=== PATIENT | male | born 1985 | race Caucasian/White ===

== ENCOUNTER → 2017-09-12 | Outpatient (CLI) | payer OTHER ==
--- NOTE | 2017-09-12 15:20 | CT ---
EXAMINATION TYPE: CT angio chest DATE OF EXAM: 09/12/2017 COMPARISON: NONE HISTORY: Chest pain on breathing CT DLP: 260.00 mGycm Automated exposure control for dose reduction was used. CONTRAST: CTA scan of the thorax is performed with IV Contrast, patient injected with 100 ml mL of Omnipaque 35 0, pulmonary embolism protocol. MIP images are created and reviewed. 3D reconstructed images are cr eated on an independent workstation and reviewed. FINDINGS: LUNGS: The lungs are grossly clear, there is no concerning parenchymal mass or nodule identified. T here is no pleural effusion or pneumothorax seen. The tracheobronchial tree is patent. AORTA: No additional significant abnormality is seen. MEDIASTINUM: There is satisfactory enhancement of the pulmonary artery and its branches, there is no CT evidence for pulmonary embolism. There are no greater than 1 cm hilar or mediastinal lymph nodes. No pericardial effusion is seen. OTHER: No additional significant abnormality is seen. IMPRESSION: NO EVIDENT PULMONARY EMBOLISM.
== END | disposition home or self-care (01) ==
LOC: RADCTMAIN 14:03
PROVIDERS: ATTEND Nurse Practitioner Family
DX: R07.1 Chest pain on breathing (principal)
CPT/HCPCS: 71275; Q9967

== ENCOUNTER 2018-09-16 08:09 | Inpatient (IN) | payer OTHER ==
[2018-09-16] MEDS ORDERED: KETOROLAC 30 MG/ML 1 ML VIAL IVP STA (08:46)
--- NOTE | 2018-09-16 08:47 | ED ---
Abdominal Pain HPI - General Chief Complaint: Abdominal Pain Stated Complaint: Possible Hernia Source: patient, RN notes reviewed, old records reviewed Mode of arrival: ambulatory Limitations: no limitations - History of Present Illness Initial Comments: This Patient is a 33-year-old male presents emergency room today with 2 days of left groin pain. Patient reports that hernia repair [address] Aquino. Patient reports that he works as a manager strategic at [employer] He's been doing a lot of heavy lifting. Patient states that he has been having a hard time standing coughing or doing any activity without severe pain in the left groin. He denies any changes in stools. She reports he has been urinating more frequently. When trying to go to work today and going over bumps in the car paper Patient was having severe pain, so they decided to come here for evaluation. Patient reports he has been having some diarrhea lately. - Related Data Home Medications Medication Instructions Recorded Confirmed Lisinopril [Zestril] 5 mg PO DAILY 01/22/16 09/16/18 Albuterol Inhaler [Ventolin Hfa 2 puff INHALATION RT-Q8H 09/16/18 09/16/18 Inhaler] Cyanocobalamin [Vitamin B-12] 500 mcg PO DAILY 09/16/18 09/16/18 Dextroamphetamine/Amphetamine 20 mg PO QAM 09/16/18 09/16/18 [Adderall Xr] Previous Rx's Medication Instructions Recorded lamoTRIgine [LaMICtal] 200 mg PO DAILY #30 tablet 05/13/16 Allergies Allergy/AdvReac Type Severity Reaction Status Date / Time No Known Allergies Allergy Verified 09/16/18 09:30 Review of Systems ROS Statement: Those systems with pertinent positive or pertinent negative responses have been documented in the HPI. ROS Other: All systems not noted in ROS Statement are negative. Past Medical History Past Medical History: Hypertension Additional Past Medical History / Comment(s): celiac disease History of Any Multi-Drug Resistant Organisms: None Reported Past Surgical History: Hernia Repair Past Psychological History: Anxiety, Depression Smoking Status: Current every day smoker Past Alcohol Use History: None Reported, Occasional Past Drug Use History: None Reported General Exam - General Exam Comments Initial Comments: 33-year-old male. Alert and oriented. No significant distress at this time. Limitations: no limitations General appearance: alert, in no apparent distress Head exam: Present: atraumatic, normocephalic, normal inspection Eye exam: Present: normal appearance, PERRL, EOMI. Absent: scleral icterus, conjunctival injection, periorbital swelling ENT exam: Present: normal exam, mucous membranes moist Neck exam: Present: normal inspection. Absent: tenderness, meningismus, lymphadenopathy Respiratory exam: Present: normal lung sounds bilaterally. Absent: respiratory distress, wheezes, rales, rhonchi, stridor Cardiovascular Exam: Present: regular rate, normal rhythm, normal heart sounds. Absent: systolic murmur, diastolic murmur, rubs, gallop, clicks GI/Abdominal exam: Present: tenderness (tender over L groin, bulging into scrotum. ), normal bowel sounds. Absent: soft, distended, guarding, rebound, rigid Extremities exam: Present: normal inspection, full ROM, normal capillary refill. Absent: tenderness, pedal edema, joint swelling, calf tenderness Back exam: Present: normal inspection Neurological exam: Present: alert, oriented X3, CN II-XII intact Psychiatric exam: Present: normal affect, normal mood Skin exam: Present: warm, dry, intact, normal color. Absent: rash Course Vital Signs 09/16/18 09/16/18 08:10 09:38 Temperature 98.2 F Pulse Rate 75 66 Respiratory 18 18 Rate Blood Pressure 129/72 112/66 O2 Sat by Pulse 97 99 Oximetry Medical Decision Making - Medical Decision Making 33-year-old male presents emergency murmurs today with concern for left groin hernia pain. Patient has had hernia repair by about 3 years ago. Patient states his Heavy lifting. He is quite tender over the left groin. No focal skin changes noted. Tenderness in the left side of the abdomen as well. Patient was given IV fluids labwork obtained. Lab work shows no significant changes at this time. We did send the Patient to CT. There is evidence of enlarged lymph nodes throughout the entire abdomen. Also evidence of intussusception with likely transient due to lymph node adhesion. Patient informed of these results. He is quite anxious as his father recently from cancer. I discussed that the Patient for surgical consult dictation. Nothing by mouth. Started on IV maintenance fluids and pain medication. - Lab Data Result diagrams: 09/16/18 08:44 09/16/18 08:44 Lab Results 09/16/18 09/16/18 09/16/18 Range/Units 08:44 08:44 08:44 WBC 4.9 (3.8-10.6) k/uL RBC 4.79 (4.30-5.90) m/uL Hgb 15.0 (13.0-17.5) gm/dL Hct 46.1 (39.0-53.0) % MCV 96.3 (80.0-100.0) fL MCH 31.4 (25.0-35.0) pg MCHC 32.6 (31.0-37.0) g/dL RDW 13.5 (11.5-15.5) % Plt Count 188 (150-450) k/uL Neutrophils % 52 % Lymphocytes % 35 % Monocytes % 6 % Eosinophils % 4 % Basophils % 1 % Neutrophils # 2.6 (1.3-7.7) k/uL Lymphocytes # 1.7 (1.0-4.8) k/uL Monocytes # 0.3 (0-1.0) k/uL Eosinophils # 0.2 (0-0.7) k/uL Basophils # 0.0 (0-0.2) k/uL PT 9.8 (9.0-12.0) sec INR 1.0 (<1.2) APTT 24.6 (22.0-30.0) sec Sodium 141 (137-145) mmol/L Potassium 4.3 (3.5-5.1) mmol/L Chloride 106 (98-107) mmol/L Carbon Dioxide 24 (22-30) mmol/L Anion Gap 11 mmol/L BUN 10 (9-20) mg/dL Creatinine 0.88 (0.66-1.25) mg/dL Est GFR (CKD-EPI)AfAm >90 (>60 ml/min/1.73 sqM) Est GFR (CKD-EPI)NonAf >90 (>60 ml/min/1.73 sqM) Glucose 100 H (74-99) mg/dL Plasma Lactic Acid Jalen (0.7-2.0) mmol/L Calcium 9.4 (8.4-10.2) mg/dL Total Bilirubin 0.5 (0.2-1.3) mg/dL AST 26 (17-59) U/L ALT 33 (21-72) U/L Alkaline Phosphatase 63 (38-126) U/L Total Protein 7.0 (6.3-8.2) g/dL Albumin 4.4 (3.5-5.0) g/dL Amylase 43 (30-110) U/L Lipase 21 L (23-300) U/L Urine Color Urine Appearance (Clear) Urine pH (5.0-8.0) Ur Specific [place] (1.001-1.035) Urine Protein (Negative) Urine Glucose (UA) (Negative) Urine Ketones (Negative) Urine Blood (Negative) Urine Nitrite (Negative) Urine Bilirubin (Negative) Urine Urobilinogen (<2.0) mg/dL Ur Leukocyte Esterase (Negative) 09/16/18 09/16/18 Range/Units 08:44 09:29 WBC (3.8-10.6) k/uL RBC (4.30-5.90) m/uL Hgb (13.0-17.5) gm/dL Hct (39.0-53.0) % MCV (80.0-100.0) fL MCH (25.0-35.0) pg MCHC (31.0-37.0) g/dL RDW (11.5-15.5) % Plt Count (150-450) k/uL Neutrophils % % Lymphocytes % % Monocytes % % Eosinophils % % Basophils % % Neutrophils # (1.3-7.7) k/uL Lymphocytes # (1.0-4.8) k/uL Monocytes # (0-1.0) k/uL Eosinophils # (0-0.7) k/uL Basophils # (0-0.2) k/uL PT (9.0-12.0) sec INR (<1.2) APTT (22.0-30.0) sec Sodium (137-145) mmol/L Potassium (3.5-5.1) mmol/L Chloride (98-107) mmol/L Carbon Dioxide (22-30) mmol/L Anion Gap mmol/L BUN (9-20) mg/dL Creatinine (0.66-1.25) mg/dL Est GFR (CKD-EPI)AfAm (>60 ml/min/1.73 sqM) Est GFR (CKD-EPI)NonAf (>60 ml/min/1.73 sqM) Glucose (74-99) mg/dL Plasma Lactic Acid Jalen 1.3 (0.7-2.0) mmol/L Calcium (8.4-10.2) mg/dL Total Bilirubin (0.2-1.3) mg/dL AST (17-59) U/L ALT (21-72) U/L Alkaline Phosphatase (38-126) U/L Total Protein (6.3-8.2) g/dL Albumin (3.5-5.0) g/dL Amylase (30-110) U/L Lipase (23-300) U/L Urine Color Colorless Urine Appearance Clear (Clear) Urine pH 6.5 (5.0-8.0) Ur Specific [place] 1.011 (1.001-1.035) Urine Protein Negative (Negative) Urine Glucose (UA) Negative (Negative) Urine Ketones Negative (Negative) Urine Blood Negative (Negative) Urine Nitrite Negative (Negative) Urine Bilirubin Negative (Negative) Urine Urobilinogen <2.0 (<2.0) mg/dL Ur Leukocyte Esterase Negative (Negative) - Radiology Data Radiology results: report reviewed Numerous borderline left abdominal mesenteric lymph nodes measuring up to 8 mm along with prominent fluid-filled small bowel loops throughout the colon correlate for possible Elissa's enteric adenitis enteritis. Short segment of bowel intussusception in the left mid abdomen may be secondary to lymphoid hyperplasia in route with transient. Dilation of adjacent small bowel loops up to 4 cm may be secondary to the enteritis and ileus. There is no improvement after conservative management follow-up with both oral and IV contrast can be considered. Segmental areas of mild wall thickening of this hepatic flexure could represent concurrent colitis. Disposition Clinical Impression: Intussusception, Left groin pain, Lymphadenopathy, abdominal Disposition: ADMITTED IP TO THIS HOSP Condition: Stable Is patient prescribed a controlled substance at d/c from ED?: No Referrals: Denise Craft MD [Primary Care Provider] - 1-2 days
[2018-09-16 09:21] LABS: Basophils % (A) 1 %; Eosinophils # (A) 0.2 k/uL (0-0.7); Eosinophils % (A) 4 %; HCT 46.1 % (39.0-53.0); Lymphocytes # (A) 1.7 k/uL (1.0-4.8); Lymphocytes % (A) 35 %; MCH 31.4 pg (25.0-35.0); MCHC 32.6 g/dL (31.0-37.0); MCV 96.3 fL (80.0-100.0); Monocytes # (A) 0.3 k/uL (0-1.0); Monocytes % (A) 6 %; Neutrophils # (A) 2.6 k/uL (1.3-7.7); Neutrophils % (A) 52 %; Platelet Count 188 k/uL (150-450); RBC 4.79 m/uL (4.30-5.90); RDW 13.5 % (11.5-15.5); WBC 4.9 k/uL (3.8-10.6)
[2018-09-16 09:26] LABS: ALT 33 U/L (21-72); AST 26 U/L (17-59); Albumin 4.4 g/dL (3.5-5.0); Alkaline Phosphatase 63 U/L (38-126); Amylase 43 U/L (30-110); Anion Gap 11 mmol/L; Blood Urea Nitrogen 10 mg/dL (9-20); Calcium 9.4 mg/dL (8.4-10.2); Carbon Dioxide 24 mmol/L (22-30); Chloride 106 mmol/L (98-107); Glucose 100 mg/dL (74-99); Lipase 21 U/L (23-300); Potassium 4.3 mmol/L (3.5-5.1); Sodium 141 mmol/L (137-145); Total Bilirubin 0.5 mg/dL (0.2-1.3)
[2018-09-16 09:27] LABS: Partial Thromboplastin Time 24.6 sec (22.0-30.0); Prothrombin Time 9.8 sec (9.0-12.0)
[2018-09-16 09:53] LABS: Appearance,Urine Clear (Clear); Bilirubin,Urine Negative (Negative); Blood,Urine Negative (Negative); Color,Urine Colorless; Glucose,Urine (UA) Negative (Negative); Ketones,Urine Negative (Negative); Leukocyte Esterase,Urine Negative (Negative); Nitrite,Urine Negative (Negative); PH, Urine 6.5 (5.0-8.0); Protein,Urine Negative (Negative); Specific Gravity,Urine 1.011 (1.001-1.035); Urobilinogen,Urine <2.0 mg/dL (<2.0)
--- NOTE | 2018-09-16 09:59 | CT ---
EXAMINATION TYPE: CT abdomen pelvis w con DATE OF EXAM: 09/16/2018 COMPARISON: NONE HISTORY: 33 year-old male abdominal pain, possible hernia TECHNIQUE: Contiguous axial scanning of the abdomen and pelvis following administration of 100 ml Iso charu 300 IV contrast. Delayed images through the kidneys and coronal/sagittal reconstructions perform ed. CT DLP: 668.1 mGycm Automated exposure control for dose reduction was used. FINDINGS: Heart normal size without pericardial effusion. Mild dependent atelectasis at the lung bases. Liver mildly enlarged at 19.6 cm. No focal lesion seen. Gallbladder borderline hydropic measuring 4 cm wide probably relating to fasting state. No surroundin g inflammation. No biliary ductal dilatation. Adrenal glands, kidneys, spleen, and pancreas appear within normal limits. There is some segmental wall thickening of the colon along the hepatic flexure, for example, axial im ages were. Moderate stool in the distal colon. Prominent fluid-filled small bowel loops are present throughout. Appendix is normal. Small bowel loo ps in the left upper quadrant mildly dilated measuring up to 4.0 cm. There are also some borderline-s ized left upper quadrant and left abdominal mesenteric lymph nodes measuring up to 8 mm. There appears to be a short segment small bowel intussusception in the left mid abdomen, axial images were and coronal image 27. Bladder urine distended. No abnormal fluid collection in the pelvis. No free air. Bones: No osseous destructive process. There is degenerative disc disease L5-S1 with disc space narro wing, disc ossified complex, and vacuum phenomenon. Additional facet arthropathy. Moderate left-sided neural foraminal stenosis at L5-S1 and mild on the right. IMPRESSION: 1. NUMEROUS BORDERLINE SIZED LEFT ABDOMINAL MESENTERIC LYMPH NODES MEASURING UP TO 8 MM ALONG WITH MO OMINENT FLUID-FILLED SMALL BOWEL LOOPS THROUGHOUT. CORRELATE FOR POSSIBLE MESENTERIC ADENITIS/ENTERIT IS. 2. SHORT SEGMENT SMALL BOWEL INTUSSUSCEPTION IN THE LEFT MID ABDOMEN MAY BE SECONDARY TO LYMPHOID HYP ERPLASIA AND IS PROBABLY TRANSIENT. DILATATION OF AN ADJACENT SMALL BOWEL LOOP UP TO 4.0 CM MAY BE SE CONDARY TO THE ENTERITIS/ILEUS. IF THERE IS NO IMPROVEMENT AFTER CONSERVATIVE MANAGEMENT, A FOLLOW-UP WITH BOTH ORAL AND IV CONTRAST CAN BE CONSIDERED. 3. SEGMENTAL AREAS OF MILD WALL THICKENING AT THE HEPATIC FLEXURE COULD REPRESENT A CONCURRENT COLITI S.
[2018-09-16] MEDS ORDERED: ONDANSETRON 4 MG/2 ML VIAL IVP PRN (10:31)
[2018-09-16] MEDS ORDERED: SODIUM CHLORIDE 0.9% 1,000 ML IV ONE (10:31)
[2018-09-16] MEDS ORDERED: NALOXONE 0.4 MG/ML 1 ML VIAL IV PRN (10:31)
[2018-09-16] MEDS ORDERED: IOPAMIDOL-300 CONTRAST 30 ML VIAL (ORAL USE) PO PRN (10:35)
[2018-09-16] MEDS ORDERED: INFLUENZA VACCINE (6 MOS+) 60 MCG/0.5 ML SYRINGE IM ONE (11:27)
[2018-09-16] MEDS: SODIUM CHLORIDE 0.9% 1,000 ML IV SCH ×2 (11:35→20:31)
[2018-09-16] MEDS: MORPHINE SULFATE 4 MG/ML SYRINGE IV PRN ×4 (11:41→23:57)
[2018-09-16] MEDS ORDERED: PIPERACILLIN-TAZOBACTAM 3.375 GM in DEXTROSE/WATER 1 50ML.BAG IVPB STA (13:35)
--- NOTE | 2018-09-16 13:35 | CT ---
EXAMINATION TYPE: CT abdomen pelvis wo con DATE OF EXAM: 09/16/2018 COMPARISON: Earlier today HISTORY: 33-year-old male left lower quadrant pain for 2 days Left lower quadrant pain CT DLP: 448.6 mGycm. Automated exposure control for dose reduction was used. TECHNIQUE: Contiguous axial scanning of the abdomen and pelvis without IV contrast. Coronal and sagit katie reconstructions performed. FINDINGS: Oral contrast has not been administered. Excreted contrast is noted from the kidneys and collecting w ithin the bladder. Oral contrast has reached the cecum argue against complete obstruction. Dilated small bowel is redemonstrated in the left abdomen measuring up to 3.7 cm currently. The previ ous intussusception is no longer seen. Just adjacent to this dilated loop, there appears to be 2 limb s of 2 or small bowel, refer to axial image 27 and 30. In addition, there is no findings concerning f or small bowel pneumatosis involving the dilated loop, refer to axial image 40 and coronal image 39. No free air. No free fluid seen. The remainder of the exam is unchanged with limitations due to the lack of IV contrast. IMPRESSION: 1. Exam repeated with oral contrast. There is redemonstrated dilated small bowel loop in the left si de of the abdomen currently measuring 3.7 cm. The previously seen intussusception appears to have res olved. However, there is suggestion of some torquing of a couple small bowel loops in the left side o f the abdomen and new findings concerning for small bowel pneumatosis here. Internal hernia and devel oping bowel ischemia is a consideration. Correlate for signs of acute abdomen and correlate with lact ic acid levels. 2. Oral contrast has progressed to the cecum. This argues against a complete obstruction. Findings called to Dr. Fuller in the ER at 1:30 PM.
--- NOTE | 2018-09-16 13:43 | P.GSHP ---
<Mildred Holliday - Last Filed: 09/16/18 13:16> History of Present Illness H&P Date: 09/16/18 33-year-old male presented to the emergency room on the day of admission with a chief complaint of having intractable severe left groin pain. Patient stated it started several days ago that he noted discomfort in the left groin area. stated he thought maybe he had been lifting and strained. He reports that he did have a hernia repair to left inguinal hernia with mesh 3 years ago by a surgeon Dr. aviles . Patient stated that he noted over the last several days if he engaged in any activity coughing standing he would develop severe pain in the left groin. stated that he noted that he did lose weight unintentionally over the last several months. Patient stated for the past several days had been experiencing diarrhea He does report that he does have a celiac disease and has not been adhering to his diet. Denies any fever chills. Denies any prior pain. Significant tenderness to the left inner groin with bulging into the scrotum palpable firm area noted to the left groin urinalysis negative Patient did have a CAT scan of the abdomen with IV contrast in the emergency room reviewing the report indicate enlarged lymph nodes throughout the entire abdomen. Also evidence of intussusception likely transition due to lymph node adhesions. 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 History of Any Multi-Drug Resistant Organisms: None Reported Past Surgical History: Hernia Repair Additional Past Surgical History / Comment(s): L inguinal hernia repair Past Anesthesia/Blood Transfusion Reactions: No Reported Reaction Past Psychological History: ADD/ADHD, Anxiety, Bipolar, Depression Additional Psychological History / Comment(s): Pt resides with his partner and his grandmother is currently living with them. Pt is independent. Pt states years ago he had suicidal thoughts/attempt but none for a very long time. States his psych medications work well for him. Pt sees Dr. Griffiths. Smoking Status: Current every day smoker Past Alcohol Use History: None Reported, Occasional Additional Past Alcohol Use History / Comment(s): Pt started smoking in 2007. Past Drug Use History: None Reported - Past Family History Father Family Medical History: Deep Vein Thrombosis (DVT) Additional Family Medical History / Comment(s): Cardiomegaly, possible lymph node problems. Mother Family Medical History: Asthma Additional Family Medical History / Comment(s): Generalized anxiety. Medications and Allergies Home Medications Medication Instructions Recorded Confirmed Type Lisinopril [Zestril] 5 mg PO DAILY 01/22/16 09/16/18 History lamoTRIgine [LaMICtal] 200 mg PO DAILY #30 tablet 05/13/16 09/16/18 Rx Albuterol Inhaler [Ventolin Hfa 2 puff INHALATION RT-Q8H 09/16/18 09/16/18 History Inhaler] Cyanocobalamin [Vitamin B-12] 500 mcg PO DAILY 09/16/18 09/16/18 History Dextroamphetamine/Amphetamine 20 mg PO QAM 09/16/18 09/16/18 History [Adderall Xr] Allergies Allergy/AdvReac Type Severity Reaction Status Date / Time No Known Allergies Allergy Verified 09/16/18 09:30 Surgical - Exam Vital Signs Temp Pulse Resp BP Pulse Ox 98.2 F 75 18 129/72 97 09/16/18 08:10 09/16/18 08:10 09/16/18 08:10 09/16/18 08:10 09/16/18 08:10 GENERAL APPEARANCE: 33 -year-old male sitting up in bed reports continues to have left groin pain with movement in no acute distress. VITAL SIGNS: Afebrile HEENT: Head is normocephalic and atraumatic. Pupils are equal and reactive. The nares are patent. Oropharynx is clear without lesions. NECK: Supple without lymphadenopathy. Traches midline. HEART: S1, S2. Regular rate and rhythm. No murmur denying chest pain LUNGS: No crackles or wheezes are heard. Adequate air movement on room air no shortness breath ABDOMEN: Soft, nontender, nondistended with good bowel sounds. No peritoneal signs. No palpable organomegaly or masses. GI tenderness over the left groin palpable firm area noted no scrotal edema noted patient states if he stands up there is bulging in the left side of the scrotum EXTREMITIES: Normal skin color and turgor. No cyanosis, rash, ulceration, clubbing or edema. Radial pedal pulses are 2/4 bilaterally. NEUROLOGICAL: No focal deficits. Strength and sensation are grossly intact. Results - Labs 09/16/18 08:44 09/16/18 08:44 Abnormal Lab Results - Last 24 Hours (Table) 09/16/18 Range/Units 08:44 Glucose 100 H (74-99) mg/dL Lipase 21 L (23-300) U/L Diabetes panel 09/16/18 Range/Units 08:44 Sodium 141 (137-145) mmol/L Potassium 4.3 (3.5-5.1) mmol/L Chloride 106 (98-107) mmol/L Carbon Dioxide 24 (22-30) mmol/L BUN 10 (9-20) mg/dL Creatinine 0.88 (0.66-1.25) mg/dL Glucose 100 H (74-99) mg/dL Calcium 9.4 (8.4-10.2) mg/dL AST 26 (17-59) U/L ALT 33 (21-72) U/L Alkaline Phosphatase 63 (38-126) U/L Total Protein 7.0 (6.3-8.2) g/dL Albumin 4.4 (3.5-5.0) g/dL Calcium panel 09/16/18 Range/Units 08:44 Calcium 9.4 (8.4-10.2) mg/dL Albumin 4.4 (3.5-5.0) g/dL Pituitary panel 09/16/18 Range/Units 08:44 Sodium 141 (137-145) mmol/L Potassium 4.3 (3.5-5.1) mmol/L Chloride 106 (98-107) mmol/L Carbon Dioxide 24 (22-30) mmol/L BUN 10 (9-20) mg/dL Creatinine 0.88 (0.66-1.25) mg/dL Glucose 100 H (74-99) mg/dL Calcium 9.4 (8.4-10.2) mg/dL Adrenal panel 09/16/18 Range/Units 08:44 Sodium 141 (137-145) mmol/L Potassium 4.3 (3.5-5.1) mmol/L Chloride 106 (98-107) mmol/L Carbon Dioxide 24 (22-30) mmol/L BUN 10 (9-20) mg/dL Creatinine 0.88 (0.66-1.25) mg/dL Glucose 100 H (74-99) mg/dL Calcium 9.4 (8.4-10.2) mg/dL Total Bilirubin 0.5 (0.2-1.3) mg/dL AST 26 (17-59) U/L ALT 33 (21-72) U/L Alkaline Phosphatase 63 (38-126) U/L Total Protein 7.0 (6.3-8.2) g/dL Albumin 4.4 (3.5-5.0) g/dL Assessment and Plan Assessment: Impression Present on admission left groin pain with a computed tomography scan of the abdomen showing evidence of enlarged lymph nodes throughout the entire abdomen Present on admission computed tomography scan of the abdomen pelvis shows evidence of intussusception likely transition due to lymph node adhesions History of a left inguinal hernia repair with mesh [address] aviles History of celiac disease Plan Repeat a computed tomography scan of the abdomen pelvis using oral contrast will follow up on results Pain control IV Zosyn as ordered Keep nothing by mouth until CAT scan report reviewed by surgeon DVT and GI prophylaxis Further recommendations pending The above impression and plan of care have been discussed and directed by signing physician. Mildred Holliday nurse practitioner acting as scribe for signing physician. <Ayaz Stone - Last Filed: 09/16/18 14:15> Surgical - Exam Vital Signs Temp Pulse Resp BP Pulse Ox 98.2 F 75 18 129/72 97 09/16/18 08:10 09/16/18 08:10 09/16/18 08:10 09/16/18 08:10 09/16/18 08:10 Results - Labs 09/16/18 08:44 09/16/18 08:44 Abnormal Lab Results - Last 24 Hours (Table) 09/16/18 Range/Units 08:44 Glucose 100 H (74-99) mg/dL Lipase 21 L (23-300) U/L Diabetes panel 09/16/18 Range/Units 08:44 Sodium 141 (137-145) mmol/L Potassium 4.3 (3.5-5.1) mmol/L Chloride 106 (98-107) mmol/L Carbon Dioxide 24 (22-30) mmol/L BUN 10 (9-20) mg/dL Creatinine 0.88 (0.66-1.25) mg/dL Glucose 100 H (74-99) mg/dL Calcium 9.4 (8.4-10.2) mg/dL AST 26 (17-59) U/L ALT 33 (21-72) U/L Alkaline Phosphatase 63 (38-126) U/L Total Protein 7.0 (6.3-8.2) g/dL Albumin 4.4 (3.5-5.0) g/dL Calcium panel 09/16/18 Range/Units 08:44 Calcium 9.4 (8.4-10.2) mg/dL Albumin 4.4 (3.5-5.0) g/dL Pituitary panel 09/16/18 Range/Units 08:44 Sodium 141 (137-145) mmol/L Potassium 4.3 (3.5-5.1) mmol/L Chloride 106 (98-107) mmol/L Carbon Dioxide 24 (22-30) mmol/L BUN 10 (9-20) mg/dL Creatinine 0.88 (0.66-1.25) mg/dL Glucose 100 H (74-99) mg/dL Calcium 9.4 (8.4-10.2) mg/dL Adrenal panel 09/16/18 Range/Units 08:44 Sodium 141 (137-145) mmol/L Potassium 4.3 (3.5-5.1) mmol/L Chloride 106 (98-107) mmol/L Carbon Dioxide 24 (22-30) mmol/L BUN 10 (9-20) mg/dL Creatinine 0.88 (0.66-1.25) mg/dL Glucose 100 H (74-99) mg/dL Calcium 9.4 (8.4-10.2) mg/dL Total Bilirubin 0.5 (0.2-1.3) mg/dL AST 26 (17-59) U/L ALT 33 (21-72) U/L Alkaline Phosphatase 63 (38-126) U/L Total Protein 7.0 (6.3-8.2) g/dL Albumin 4.4 (3.5-5.0) g/dL Assessment and Plan Plan: Patient's abdomen soft. There is some mild tenderness in the mid abdominal area. There is no rebound or guarding. The patient will be hydrated and observed overnight. If his condition changes he may require exploratory laparotomy.
[2018-09-16] MEDS: KETOROLAC 30 MG/ML 1 ML VIAL IVP PRN ×2 (17:52→23:58)
[2018-09-16] MEDS ORDERED: IPRATROPIUM-ALBUTEROL 3 ML NEB INHALATION PRN (20:32)
[2018-09-16] MEDS: LISINOPRIL 5 MG TAB PO SCH (21:17)
[2018-09-16] MEDS: lamoTRIgine 100 MG TAB PO SCH (21:17)
[2018-09-17] MEDS: KETOROLAC 30 MG/ML 1 ML VIAL IVP PRN ×2 (05:46→12:56)
[2018-09-17] MEDS: MORPHINE SULFATE 4 MG/ML SYRINGE IV PRN ×2 (05:46→09:52)
[2018-09-17 05:54] LABS: Basophils % (A) 1 %; Eosinophils # (A) 0.3 k/uL (0-0.7); Eosinophils % (A) 6 %; HCT 39.3 % (39.0-53.0); HGB 12.8 gm/dL (13.0-17.5); Lymphocytes # (A) 2.3 k/uL (1.0-4.8); Lymphocytes % (A) 54 %; MCH 31.8 pg (25.0-35.0); MCHC 32.6 g/dL (31.0-37.0); MCV 97.6 fL (80.0-100.0); Mean Platelet Volume 7.1; Monocytes # (A) 0.2 k/uL (0-1.0); Monocytes % (A) 6 %; Neutrophils # (A) 1.4 k/uL (1.3-7.7); Neutrophils % (A) 32 %; Platelet Count 150 k/uL (150-450); RBC 4.03 m/uL (4.30-5.90); RDW 13.6 % (11.5-15.5); WBC 4.3 k/uL (3.8-10.6)
[2018-09-17 06:22] LABS: ALT 29 U/L (21-72); AST 21 U/L (17-59); Albumin 3.2 g/dL (3.5-5.0); Alkaline Phosphatase 47 U/L (38-126); Anion Gap 4 mmol/L; Blood Urea Nitrogen 9 mg/dL (9-20); Calcium 8.9 mg/dL (8.4-10.2); Carbon Dioxide 26 mmol/L (22-30); Chloride 109 mmol/L (98-107); Glucose 87 mg/dL (74-99); Potassium 4.8 mmol/L (3.5-5.1); Sodium 139 mmol/L (137-145); Total Bilirubin 0.4 mg/dL (0.2-1.3); Total Protein 5.5 g/dL (6.3-8.2)
[2018-09-17] MEDS ORDERED: ADDERALL 20MG PO SCH (09:00)
[2018-09-17] MEDS ORDERED: PANTOPRAZOLE 40 MG/10 ML VIAL IV SCH (09:00)
[2018-09-17] MEDS: IPRATROPIUM-ALBUTEROL 3 ML NEB INHALATION SCH ×3 (09:04→15:43)
[2018-09-17] MEDS: LISINOPRIL 5 MG TAB PO SCH ×2 (09:21→09:25)
[2018-09-17] MEDS: SODIUM CHLORIDE 0.9% 1,000 ML IV SCH (09:21)
[2018-09-17] MEDS: lamoTRIgine 100 MG TAB PO SCH ×2 (09:21→09:25)
[2018-09-17] MEDS ORDERED: HYDROcodone/APAP 5-325MG 1 EACH TAB PO PRN (12:40)
--- NOTE | 2018-09-17 14:18 | P.PN ---
<MgMildred M - Last Filed: 09/17/18 14:08> Subjective Progress Note Date: 09/17/18 33-year-old male seen at the bedside this afternoon. Patient states there is a significant improvement in the left groin pain "almost gone" patient states he' s hungry. No other new events. Left groin site less tender compared to omission The repeat CAT scan with oral contrast of the abdomen reviewing the report the previously seen intussusception appears to have resolved Objective - Vital Signs Vital signs: Vital Signs Temp 97.3 F L 09/17/18 06:09 Pulse 82 09/17/18 06:09 Resp 14 09/17/18 06:09 BP 107/52 09/17/18 06:09 Pulse Ox 98 09/17/18 06:09 Intake & Output 09/16/18 09/17/18 09/17/18 18:59 06:59 18:59 Weight 77.111 kg Other: # Voids 2 - Exam Physical exam Pleasant 33-year-old male sitting up in bed appears in no acute distress states there is a noted improvement in the left groin pain Lungs adequate air movement bilaterally Heart S1-S2 audible regular Abdomen soft flat nontender no nausea no vomiting GI left groin soft nontender no redness no swelling no testicle swelling urinating no difficulty no edema to the lower extremities Extremities no edema - Labs CBC & Chem 7: 09/17/18 05:23 09/17/18 05:23 Labs: Abnormal Lab Results - Last 24 Hours (Table) 09/17/18 09/17/18 Range/Units 05:23 05:23 RBC 4.03 L (4.30-5.90) m/uL Hgb 12.8 L (13.0-17.5) gm/dL Chloride 109 H (98-107) mmol/L Total Protein 5.5 L (6.3-8.2) g/dL Albumin 3.2 L (3.5-5.0) g/dL Assessment and Plan Assessment: Impression Present on admission left groin pain with a computed tomography scan of the abdomen showing evidence of enlarged lymph nodes throughout the entire abdomen Present on admission computed tomography scan of the abdomen pelvis shows evidence of intussusception likely transition due to lymph node adhesions History of a left inguinal hernia repair with mesh [address] aviles History of celiac disease Repeat CAT scan of the abdomen shows intussusception has resolved Plan For discharge within the next 24 hours Pain control Regular diet DVT and GI prophylaxis The above impression and plan of care have been discussed and directed by signing physician. Mildred Holliday nurse practitioner acting as scribe for signing physician. <Alexis Aviles - Last Filed: 09/17/18 17:28> Objective - Vital Signs Vital signs: Vital Signs Temp 98.9 F 09/17/18 14:30 Pulse 63 09/17/18 14:30 Resp 16 09/17/18 14:30 BP 116/68 09/17/18 14:30 Pulse Ox 98 09/17/18 14:30 Intake & Output 09/16/18 09/17/18 09/17/18 18:59 06:59 18:59 Weight 77.111 kg Other: # Voids 2 3 - Labs CBC & Chem 7: 09/17/18 05:23 09/17/18 05:23 Labs: Abnormal Lab Results - Last 24 Hours (Table) 09/17/18 09/17/18 Range/Units 05:23 05:23 RBC 4.03 L (4.30-5.90) m/uL Hgb 12.8 L (13.0-17.5) gm/dL Chloride 109 H (98-107) mmol/L Total Protein 5.5 L (6.3-8.2) g/dL Albumin 3.2 L (3.5-5.0) g/dL Assessment and Plan Assessment: See discharge summary
[2018-09-17 14:54] VITALS: BP 116/68; PULSE 63; RESP 16; TEMP 98.9
--- NOTE | 2018-09-17 17:30 | P.DS ---
Providers Date of admission: 09/16/18 11:01 Expected date of discharge: 09/17/18 Attending physician: Alexis Aquino Consults: 09/16/18 18:20 Consult Physician Routine Consulting Provider: Nona Allen Consult Reason/Comments: medical managment Do you want consulting provider notified?: Yes Primary care physician: [facility] Course: Patient minute through the ER initially to Dr. Stone service. The patient has a history of a left direct inguinal hernia repair done in an open fashion in 2013. Patient was doing well until Friday when he was lifting heavy objects while at work. Friday evening he had pain in the left groin that became worse after lifting again on Friday. When he woke up on Friday pain was more severe and he went to the ER for evaluation. He points to the middle of his left inguinal incision as the site of the pain. Denies bruising or swelling. No nausea or vomiting. Normal bowel habits. Patient had a CAT scan showing suspected small bowel intussusception. A repeat CAT scan was obtained which showed some possible bowel wall thickening and even pneumatosis was theorized. The patient feels better today. He is tolerating diet. He is anxious to go home at this time. His abdominal examination reveals tenderness in the left groin but no diffuse abdominal tenderness noted. I believe the intussusception seen on initial CAT scan was more physiologic. Findings on the second CAT scan may be related to poor distention of the bowel loops. I discussed the CAT scan findings in detail with the patient. I informed him that he could be discharged home but to contact us with any changes in his condition. Patient will follow-up with myself in one week. Prescription for [place] provided. Patient Condition at Discharge: Stable Plan - Discharge Summary Discharge Rx Participant: No New Discharge Prescriptions: No Action Lisinopril [Zestril] 5 mg PO DAILY lamoTRIgine [LaMICtal] 200 mg PO DAILY #30 tablet Cyanocobalamin [Vitamin B-12] 500 mcg PO DAILY Dextroamphetamine/Amphetamine [Adderall Xr] 20 mg PO QAM Albuterol Inhaler [Ventolin Hfa Inhaler] 2 puff INHALATION RT-Q8H Discharge Medication List Lisinopril [Zestril] 5 mg PO DAILY 01/22/16 [History] lamoTRIgine [LaMICtal] 200 mg PO DAILY #30 tablet 05/13/16 [Rx] Albuterol Inhaler [Ventolin Hfa Inhaler] 2 puff INHALATION RT-Q8H 09/16/18 [ History] Cyanocobalamin [Vitamin B-12] 500 mcg PO DAILY 09/16/18 [History] Dextroamphetamine/Amphetamine [Adderall Xr] 20 mg PO QAM 09/16/18 [History] Follow up Appointment(s)/Referral(s): Alexis Aquino MD [Medical Doctor] - 09/24/18 11:00 am Denise Craft MD [Primary Care Provider] - 1 Week (DR AMANDA'S OFFICE WAS CLOSED) Activity/Diet/Wound Care/Special Instructions: regular gluten diet activity as tolerated no twisting/turning
--- NOTE | 2018-09-17 17:31 | P.CONS ---
History of Present Illness - Reason for Consult Consult date: 09/17/18 Medical management of hypertension and other medical problems - Chief Complaint Abdominal pain - History of Present Illness Patient is a 33-year-old male with a known history of hypertension, asthma and hearing disorder/deafness as well as celiac disease came to ER with the complaints of severe left lower quadrant abdominal pain, mainly in the left groin area getting worse for the past 3 days. Patient had a previous history of left inguinal hernia repair surgery mesh. Patient thought that it could be from the anemia and also he thought he might have pulled a muscle as his job requires lifting heavy objects. Denied any fever or chills. Patient was nauseated otherwise. No episodes of vomiting. Pain gets worse with coughing and strengthening abdominal muscles. Patient did have diarrhea recently. Patient does have history of celiac disease and had on and off diarrhea previously. No commerce or shortness of breath or chest pain. Denied any recent illnesses otherwise. CT of the abdomen pelvis showed that is very demonstrative dilated small bowel loop in the left side of the abdomen currently measuring 3.7 cm. The previously seen intussusception appears to have resolved. However there is suggestion of some darkening of's couple small bowel loops in the left side of the abdomen and new findings concerning for small bowel pneumatosis here. Internal hernia and developing bowel ischemia is a consultation. Correlate for signs of acute abdomen and correlate with lactic acid levels . Review of Systems Constitutional: Patient denies any fever or chills . No generalized weakness or weight loss. Abdomen: Agent does have nausea and no vomiting. Abdominal pain mainly left lower quadrant. No diarrhea or constipation.. Cardiovascular: Patient denies any chest pain or short of breath no palpitations. Respiratory: patient denied any cough is from production. No shortness of breath Neurologic: Patient denied any numbness or tingling headache. Musculoskeletal: Patient denies any complaints of joint swelling or deformity. Skin: Negative Psychiatric: Negative Endocrine: No heat or cold intolerance. No recent weight gain. Genitourinary: No dysuria or hematuria. All other 14 point ROS negative except the above Past Medical History Past Medical History: Asthma, Hearing Disorder / Deafness, Hypertension Additional Past Medical History / Comment(s): Celiac disease, exercise induced asthma-bothered more as a child, 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. History of Any Multi-Drug Resistant Organisms: None Reported Past Surgical History: Hernia Repair Additional Past Surgical History / Comment(s): L inguinal hernia repair Past Anesthesia/Blood Transfusion Reactions: No Reported Reaction Past Psychological History: ADD/ADHD, Anxiety, Bipolar, Depression Additional Psychological History / Comment(s): Pt resides with his partner and his grandmother is currently living with them. Pt is independent. Pt states years ago he had suicidal thoughts/attempt but none for a very long time. States his psych medications work well for him. Pt sees Dr. Griffiths. Smoking Status: Current every day smoker Past Alcohol Use History: None Reported, Occasional Additional Past Alcohol Use History / Comment(s): Pt started smoking in 2007. Past Drug Use History: None Reported - Past Family History Father Family Medical History: Deep Vein Thrombosis (DVT) Additional Family Medical History / Comment(s): Cardiomegaly, possible lymph node problems. Mother Family Medical History: Asthma Additional Family Medical History / Comment(s): Generalized anxiety. Medications and Allergies Home Medications Medication Instructions Recorded Confirmed Type Lisinopril [Zestril] 5 mg PO DAILY 01/22/16 09/16/18 History lamoTRIgine [LaMICtal] 200 mg PO DAILY #30 tablet 05/13/16 09/16/18 Rx Albuterol Inhaler [Ventolin Hfa 2 puff INHALATION RT-Q8H 09/16/18 09/16/18 History Inhaler] Cyanocobalamin [Vitamin B-12] 500 mcg PO DAILY 09/16/18 09/16/18 History Dextroamphetamine/Amphetamine 20 mg PO QAM 09/16/18 09/16/18 History [Adderall Xr] Allergies Allergy/AdvReac Type Severity Reaction Status Date / Time No Known Allergies Allergy Verified 09/16/18 09:30 Physical Exam Vitals: Vital Signs Temp Pulse Resp BP Pulse Ox 09/17/18 14:30 98.9 F 63 16 116/68 98 09/17/18 06:09 97.3 F L 82 14 107/52 98 09/16/18 23:00 97.0 F L 70 14 123/59 97 Intake and Output 09/17/18 09/17/18 09/17/18 06:59 14:59 22:59 Other: # Voids 2 3 PHYSICAL EXAMINATION: Patient is lying in the bed comfortably, no acute distress, awake alert and oriented.. HEENT: Normocephalic. Neck is supple. Pupils reactive. Nostrils clear. Oral cavity is moist. Ears reveal no drainage. Neck reveals no JVD, carotid bruits, or thyromegaly. CHEST EXAMINATION: Trachea is central. Symmetrical expansion. Lung downing clear to auscultation and percussion. CARDIAC: Normal S1, S2 with no gallops. No murmurs ABDOMEN: Soft. Left inguinal area tenderness with bulging into the left scrotum. Bowel sounds normal. No organomegaly. No abdominal bruits. Extremities: reveal no edema. No clubbing or cyanosis Neurologically awake, alert, oriented x3 with well-coordinated movements. No focal deficits noted Skin: No rash or skin lesions. Psychiatric: Coperative. Nonsuicidal Musculoskeletal: No joint swelling or deformity. Normal range of motion. Results CBC & Chem 7: 09/17/18 05:23 09/17/18 05:23 Labs: Abnormal Lab Results - Last 24 Hours (Table) 09/17/18 09/17/18 Range/Units 05:23 05:23 RBC 4.03 L (4.30-5.90) m/uL Hgb 12.8 L (13.0-17.5) gm/dL Chloride 109 H (98-107) mmol/L Total Protein 5.5 L (6.3-8.2) g/dL Albumin 3.2 L (3.5-5.0) g/dL Assessment and Plan Assessment: Left lower quadrant abdominal pain secondary to intussusception Left internal inguinal hernia with possible developing bowel ischemia as per CT abdomen and pelvis Asthma stable History of celiac disease Hypertension controlled Anxiety, bipolar, depression, ADD/ADHD Currently everyday smoker DVT prophylaxis Plan: Patient will be continued on IV fluids and nothing by mouth. Repeat CT of the abdomen pelvis showed resolution of intussusception. Lactic acid level is not elevated. Will continue to follow closely. Breathing treatments as needed. Continue with home blood pressure medications in the form of lisinopril. Follow -up CBC and BMP tomorrow. Patient was counseled for diet controlled due to celiac disease and counseled smoking cessation as well. We will continue to follow closely and further recommendations based on the clinical course. Thank you for your consult. Time with Patient: Greater than 30
[2018-09-17] MEDS ORDERED: lamoTRIgine 100 MG TAB PO SCH (21:00)
[2018-09-17] MEDS ORDERED: LISINOPRIL 5 MG TAB PO SCH (21:00)
== END 2018-09-17 17:56 | disposition home or self-care (01) | DRG 390 ==
LOC: EC 08:09 → 4SSUR 10:31 → OBSVTOIN 11:01 → 4MS4W 14:22
PROVIDERS: ADMIT Surgery; ATTEND Surgery
PROC: 3E0234Z Introduction of Serum, Toxoid and Vaccine into Muscle, Percutaneous Approach (ICD-10-PCS; principal; 2018-09-16)
DX: K56.1 Intussusception (principal); K46.9 Unspecified abdominal hernia without obstruction or gangrene; K90.0 Celiac disease; I10 Essential (primary) hypertension; R59.0 Localized enlarged lymph nodes; Z23 Encounter for immunization; J45.990 Exercise induced bronchospasm; H91.90 Unspecified hearing loss, unspecified ear; F32.9 Major depressive disorder, single episode, unspecified; F41.9 Anxiety disorder, unspecified; F90.9 Attention-deficit hyperactivity disorder, unspecified type; F17.200 Nicotine dependence, unspecified, uncomplicated; Z71.6 Tobacco abuse counseling; Z79.899 Other long term (current) drug therapy; Z91.5 Personal history of self-harm; Z83.2 Family history of diseases of the blood and blood-forming organs and certain disorders involving the immune mechanism; Z82.5 Family history of asthma and other chronic lower respiratory diseases; Z81.8 Family history of other mental and behavioral disorders; Z82.49 Family history of ischemic heart disease and other diseases of the circulatory system; X50.0XXA Overexertion from strenuous movement or load, initial encounter
CPT/HCPCS: 36415; 74176; 74177; 80053; 81003; 82150; 83605; 83690; 85025; 85610; 85730; 90686; 96361; 96374; 96375; 99285

== ENCOUNTER → 2019-01-08 | Outpatient (CLI) | payer OTHER ==
--- NOTE | 2019-01-08 11:46 | CT ---
EXAMINATION TYPE: CT abdomen pelvis wo/w con DATE OF EXAM: 01/08/2019 COMPARISON: CT abdomen pelvis September 16, 2018 HISTORY: LLQ pain CT DLP: 1215.60 mGycm, Automated Exposure Control for Dose Reduction was Utilized. CONTRAST: CT scan of the abdomen and pelvis is performed with oral and without and with IV Contrast, patient in jected with 100 ml mL of Isovue 300. FINDINGS: LUNG BASES: No significant abnormality is appreciated. LIVER/GB: No significant abnormality is appreciated. PANCREAS: No significant abnormality is seen. SPLEEN: No significant abnormality is seen. ADRENALS: Slight asymmetric nodular thickening to left adrenal gland is stable presumed benign. KIDNEYS: Noncontrast images show no renal calculi bilaterally. Postcontrast images show symmetric cortical medullary uptake and excretion without concerning solid o r cystic renal mass or hydronephrosis identified bilaterally. Bladder felt within normal limits in th e anterior pelvis. BOWEL: The oral contrast only reaches level of the proximal to mid ileal loops in the right lower naif drant making evaluation of distal bowel suboptimal. In addition patient has very little intra-abdomin al fat making evaluation of bowel suboptimal. There is no suspicious small or large bowel dilatation appreciated. Normal gas-filled appendix is seen from cecum in the right lower quadrant. There is mode rate wall thickening in left mid abdominal small bowel loop seen best series 10 images 32 through 45. Terminal ileum is fecal filled. No suspicious wall thickening is present. Some additional left-sided small bowel loop show poor opacification and thus are suboptimally evaluated. PROSTATE/SEMINAL VESICLES: No gross abnormality seen. LYMPH NODES: No greater than 1cm abdominal or pelvic lymph nodes are appreciated. OSSEOUS STRUCTURES: Spine is straightened on sagittal images. There is moderate disc space narrowing L5-S1 level. There is mild disc space narrowing L4-L5 level. There is mild axial joint space loss and acetabular spurring in both hips. OTHER: No significant additional abnormality is seen. IMPRESSION: 1. There is at least one focus of small bowel enteritis in the left midabdomen involving jejunal loop. Additional areas of multifocal enteritis are not excluded. Terminal ileum felt within n ormal limits. Correlate clinically to exclude Crohn's disease. Follow-up MR enterography may be benef icial.
== END | disposition home or self-care (01) ==
LOC: RADCTMAIN 06:49
PROVIDERS: ATTEND Physician Assistant
DX: K52.9 Noninfective gastroenteritis and colitis, unspecified (principal)
CPT/HCPCS: 74178; Q9967

== ENCOUNTER → 2019-02-01 | Outpatient (CLI) | payer OTHER ==
[2019-02-01 18:58] LABS: Gliadin AB IgA, Unit 103.8 U/mL
== END | disposition home or self-care (01) ==
LOC: LABWHC1 08:13
PROVIDERS: ATTEND Physician Assistant
DX: K90.0 Celiac disease (principal)
CPT/HCPCS: 36415; 83516

== ENCOUNTER → 2019-02-12 | Day surgery (SDC) | payer OTHER ==
[~2019-02-12] MED LIST: GLUCAGON 1 MG/ML VIAL IM STA
[2019-02-12 08:33] VITALS: BP 110/73; PULSE 65; RESP 16; TEMP 97.5
--- NOTE | 2019-02-15 13:45 | MR ---
EXAMINATION TYPE: MR Enterography DATE OF EXAM: 02/12/2019 COMPARISON: 01/08/2019 and 09/16/2018 CT abdomen and pelvis HISTORY: Abdominal pain. Abnormal CT. CONTRAST: Standard multiplanar, multisequence imaging of the abdomen is performed without and with IV contrast, patient is injected with 7.5 mL intravenous Gadavist gadolinium contrast. Oral Volumen was given as per enterography protocol as well as oral water. FINDINGS: There is very mild enhancement of the decompressed terminal ileum. No bowel wall thickening is seen. There is redemonstration of small bowel to small bowel left mid abdominal intussusception is seen on the prior. These loops of jejunum in the left mid abdomen redemonstrate small bowel wall thickening m easuring up to 9 mm, however no abnormal enhancement is seen within these bowel loops. A second area of small bowel to small bowel intussusception is seen on T2 fat sat axial image 28 and 27 centrally w ithin the distal small bowel (4 bilateral ilium). A moderate amount retained debris seen within the c olon, limiting evaluation. There is no abnormal enhancement or abnormal morphology of the visualized portions of the liver, sple en, pancreas kidneys, and adrenal glands. The previously described left adrenal gland thickening shawn ins stable without discrete nodule. No suspicious adenopathy in the abdomen or pelvis. No cholelithia sis. No focal fluid collection to suggest abscess is seen. No sinus tract or stricture is identified. IMPRESSION: Recurrent multifocal small bowel to small bowel intussusceptions with multifocal small bowel wall thi ckening. Therefore underlying inflammatory bowel disease or recurrent enteritis is suspected with abel y minimal enhancement of the terminal ileum. However no other areas of abnormal enhancement are seen to suggest active inflammatory bowel disease.
== END ==
LOC: RADMRIMAIN 07:46
PROVIDERS: ATTEND Physician Assistant
DX: R10.9 Unspecified abdominal pain (principal)
CPT/HCPCS: 82565; 96372; 36415; 72197; 74183; J1610; A9585

== ENCOUNTER 2019-03-02 09:37 | Day surgery (SDC) | payer OTHER ==
[2019-02-26 15:16] VITALS: BMI 25.5
[~2019-03-02 09:37] MED LIST changes: -GLUCAGON 1 MG/ML VIAL IM STA; +LACTATED RINGERS 1,000 ML IV SCH; +LIDOCAINE 1% 20 ML VIAL (10MG/ML) FOR IV START INTRADERMA PRN
[2019-03-02 09:54] VITALS: TEMP 97.8
[2019-03-02] MEDS ORDERED: LACTATED RINGERS 1,000 ML IV ONE (10:00)
[2019-03-02] MEDS ORDERED: PROPOFOL 10 MG/ML 20 ML VIAL IV ONE (10:44)
[2019-03-02] MEDS ORDERED: LIDOCAINE 1% INJ 10MG/ML (20 ML MDV) ONE (10:44)
--- NOTE | 2019-03-02 11:25 | P.PCN ---
Date of Procedure: 03/02/19 Procedure(s) Performed: Procedure: 1. Esophagogastroduodenoscopy and biopsy. 2. Colonoscopy and biopsy. Preoperative diagnosis: History of celiac disease and left lower quadrant pain and abnormal weight loss. Postoperative diagnosis: 1. Small sliding hiatal hernia with no obvious esophagitis or complicated reflux disease. 2. Mild antral gastritis. 3. Normal colon and terminal ileum. 4. Biopsies obtained from the duodenum, antrum, esophagus, terminal ileum and right colon. Preparation: HalfLytely prep. Sedation: Was provided by anesthesia. Brief clinical history: The patient is a 33-year-old male who is scheduled for this evaluation because of left lower quadrant abdominal pain and weight loss. He was diagnosed with celiac disease in 2006 and has been following a gluten free diet. The patient had a CT of the abdomen in January of this year and there was mention of enteritis involving jejunal loops. Magnetic resonance enterography done last month showed recurrent multifocal small bowel wall small bowel intussusception with multifocal small bowel wall thickening and underlying inflammatory bowel disease was suspected including minimal enhancement of the terminal ileum. There is family history of Crohn's disease in his grandfather. Procedure: With the patient on his left lateral decubitus and after informed consent and adequate sedation, I passed the Olympus-GIF H 190 video upper endoscope through the cricopharyngeus down the esophagus. GE junction was around 41 cm from the incisors and there was a small hiatal hernia but no obvious esophagitis or complicated reflux disease. The endoscope was then passed into the stomach which was insufflated with air and inspected in detail including the retroflex view in the cardia. There was some mottling and erythema in the antrum but no ulcers or erosions pyloric channel, duodenal bulb, post bulbar area and descending duodenum did not show any obvious abnormalities. I obtained multiple biopsies from the duodenum, antrum and esophagus then the endoscope was withdrawn and I proceeded to perform the colonoscopy. Perianal area did not show any fissures or fistulas. There were no masses felt on digital rectal examination. The Olympus CFH 190 L video colonoscope was then inserted in the rectum in the usual fashion and advanced to the cecum. I intubated the ileocecal valve and examined the terminal ileum. Terminal ileum and colon appeared healthy with no edema, erythema, friability, ulceration, exudation or spontaneous bleeding. No polyps or tumors were seen or any obvious diverticular disease or other pathology. I retroflexed the endoscope in the rectum before the endoscope was withdrawn. The patient tolerated the procedure well. Plan: The patient was reassured. He will follow up in the office as planned and we would keep you updated on his progress.
[2019-03-02 12:29] VITALS: BP 126/78; PULSE 69; RESP 16
== END 2019-03-02 12:00 | disposition home or self-care (01) ==
LOC: ORWHC2ENDO 09:37
DX: K44.9 Diaphragmatic hernia without obstruction or gangrene (principal); J45.909 Unspecified asthma, uncomplicated; K21.9 Gastro-esophageal reflux disease without esophagitis; I10 Essential (primary) hypertension; Z79.899 Other long term (current) drug therapy; K29.70 Gastritis, unspecified, without bleeding; K90.0 Celiac disease; Z83.79 Family history of other diseases of the digestive system; K29.50 Unspecified chronic gastritis without bleeding
CPT/HCPCS: 88305; 45380; 43239; J2001; J2704

== ENCOUNTER → 2021-02-28 | Outpatient (CLI) | payer OTHER ==
--- NOTE | 2021-02-28 08:54 | CT ---
EXAMINATION TYPE: CT foot LT wo con DATE OF EXAM: 02/28/2021 COMPARISON: None HISTORY: Non displaced fracture of third metatarsal, left foot CT DLP: 181.10 mGycm Automated exposure control for dose reduction was used. Unenhanced CT of the left foot was obtained w ith axial coronal and sagittal images reviewed. 3-D reconstruction was obtained at a separate worksta tion. Bone and soft tissue settings are submitted. FINDINGS: There are nondisplaced fractures involving the third and fourth metatarsals at their bases. Mild comm inution noted at the third metatarsal fracture with minimal intra-articular extension. Fracture at th e base of the fourth metatarsal does not extend into the joint space and also is virtually nondisplac ed. Mild soft tissue swelling seen. No additional fractures noted. Joint spaces are well-preserved. N o fluid collections seen. IMPRESSION: VIRTUALLY NONDISPLACED FRACTURES INVOLVING THE BASES OF THE THIRD AND FOURTH METATARSALS.
== END | disposition home or self-care (01) ==
LOC: RADCTMAIN 07:16
PROVIDERS: ATTEND Podiatrist
DX: S92.335A Nondisplaced fracture of third metatarsal bone, left foot, initial encounter for closed fracture (principal); S92.342A Displaced fracture of fourth metatarsal bone, left foot, initial encounter for closed fracture

== ENCOUNTER 2022-06-12 10:46 | Observation (INO) | payer OTHER ==
--- NOTE | 2022-06-12 11:09 | ED ---
General Adult HPI - General Chief complaint: Chest Pain Stated complaint: chest pain Time Seen by Provider: 06/12/22 11:00 Source: patient, family, RN notes reviewed Mode of arrival: wheelchair Limitations: no limitations - History of Present Illness Initial comments: Patient is a pleasant 36-year-old male presenting to emergency Department with chest discomfort. Symptoms have been occurring over the past week. Discomfort is currently mild rated 2/10. Discomfort does feel like tightness with radiation towards left arm. Symptoms do worsen with exertion. Patient does have exertional dyspnea. Patient has had some nausea and sweating. Patient did have an episode of syncope 2 days ago that lasted close to 10 minutes. No injury. No other history of similar symptoms previously. There is strong family history of cardiac disease, brother at age 32 from cardiac problems. - Related Data Home Medications Medication Instructions Recorded Confirmed lisinopriL [Zestril] 5 mg PO HS 01/22/16 02/26/19 Albuterol Inhaler [Ventolin Hfa 2 puff INHALATION RT-Q8H PRN 09/16/18 03/02/19 Inhaler] Cyanocobalamin [Vitamin B-12] 500 mcg PO DAILY 09/16/18 02/26/19 Dextroamphetamine/Amphetamine 20 mg PO QAM 09/16/18 02/26/19 [Adderall Xr] Dicyclomine [Bentyl] 10 mg PO TID 02/26/19 02/26/19 lamoTRIgine [LaMICtal] 200 mg PO HS 02/26/19 02/26/19 Allergies Allergy/AdvReac Type Severity Reaction Status Date / Time No Known Allergies Allergy Verified 06/12/22 10:58 Review of Systems ROS Statement: Those systems with pertinent positive or pertinent negative responses have been documented in the HPI. ROS Other: All systems not noted in ROS Statement are negative. Constitutional: Denies: fever Eyes: Denies: eye pain ENT: Denies: ear pain Respiratory: Reports: as per HPI. Denies: cough Cardiovascular: Reports: as per HPI, chest pain Endocrine: Denies: heat or cold intolerance Gastrointestinal: Reports: nausea. Denies: abdominal pain Genitourinary: Denies: dysuria Musculoskeletal: Denies: back pain Skin: Denies: rash Neurological: Denies: headache, weakness, confusion Past Medical History Past Medical History: Asthma, GERD/Reflux, Hearing Disorder / Deafness, Hyperten sayda Additional Past Medical History / Comment(s): Celiac disease, exercise induced asthma-bothered more as a child, 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, "inflammation lt side lower intestine" History of Any Multi-Drug Resistant Organisms: None Reported Past Surgical History: Hernia Repair Additional Past Surgical History / Comment(s): L inguinal hernia repair Past Anesthesia/Blood Transfusion Reactions: Previous Problems w/ Anesthesia Additional Past Anesthesia/Blood Transfusion Reaction / Comment(s): takes longer to wake up Past Psychological History: ADD/ADHD, Anxiety, Bipolar, Depression Smoking Status: Current every day smoker Past Alcohol Use History: None Reported Past Drug Use History: None Reported - Past Family History Father Family Medical History: Deep Vein Thrombosis (DVT) Additional Family Medical History / Comment(s): Cardiomegaly, possible lymph node problems. Mother Family Medical History: Asthma Additional Family Medical History / Comment(s): Generalized anxiety. General Exam Limitations: no limitations General appearance: alert, in no apparent distress Head exam: Present: normocephalic Eye exam: Present: normal appearance, PERRL, EOMI ENT exam: Present: normal oropharynx Neck exam: Present: normal inspection Respiratory exam: Present: normal lung sounds bilaterally. Absent: chest wall tenderness Cardiovascular Exam: Present: regular rate, normal rhythm Expanded Peripheral pulses: 2+: Radial (R), Radial (L), Posterior Tibialis (R), Posterior Tibialis (L), Dorsalis Pedis (R), Dorsalis Pedis (L) GI/Abdominal exam: Present: soft. Absent: tenderness, pulsatile mass Extremities exam: Present: normal inspection. Absent: pedal edema, calf tenderness Neurological exam: Present: alert, oriented X3, CN II-XII intact. Absent: motor sensory deficit Expanded Neurological exam: Present: protecting the airway Speech: Present: fluid speech Cranial nerves: EOM's Intact: Normal, Facial Sensation: Normal Sensory exam: Upper Extremity Light Touch: Normal, Lower Extremity Light Touch: Normal Motor strength exam: RUE: 5, LUE: 5, RLE: 5, LLE: 5 Eye Response: (4) open spontaneously Motor Response: (6) obeys commands Verbal Response: (5) oriented Psychiatric exam: Present: normal affect, normal mood Skin exam: Present: normal color Course Vital Signs 06/12/22 06/12/22 06/12/22 10:55 11:54 12:37 Temperature 98.9 F Pulse Rate 82 75 Pulse Rate [ 75 Sitting Reservations Specialist] Respiratory 18 18 Rate Blood Pressure 138/96 135/86 O2 Sat by Pulse 98 97 Oximetry - Reevaluation(s) Reevaluation #1: 06/12/22 12:40 Repeat EKG shows sinus rhythm 79. DC 148. QRS 102. QT 371. QTC 406. Normal axis. Normal QRS. No acute ST change. PVC present. Patient reevaluated and updated. Patient had some increased chest discomfort that is improving with nitroglycerin. [facility] physician group has been paged for admission, covering hospital observation call. EKG Findings - EKG Comments: EKG Findings:: Sinus rhythm 79. DC 139. QRS 100. QT 360. QTC 394. Normal axis. PVC is present. Normal QRS. No acute ST change. Medical Decision Making - Medical Decision Making Case was discussed with alphonso physician, who will admit. - Lab Data Result diagrams: 06/12/22 11:42 06/12/22 11:42 Lab Results 06/12/22 06/12/22 06/12/22 Range/Units 11:42 11:42 11:42 WBC 5.6 (3.8-10.6) k/uL RBC 4.73 (4.30-5.90) m/uL Hgb 14.9 (13.0-17.5) gm/dL Hct 45.0 (39.0-53.0) % MCV 95.2 (80.0-100.0) fL MCH 31.5 (25.0-35.0) pg MCHC 33.1 (31.0-37.0) g/dL RDW 13.4 (11.5-15.5) % Plt Count 241 (150-450) k/uL MPV 7.2 Neutrophils % 44 % Lymphocytes % 43 % Monocytes % 5 % Eosinophils % 4 % Basophils % 1 % Neutrophils # 2.5 (1.3-7.7) k/uL Lymphocytes # 2.4 (1.0-4.8) k/uL Monocytes # 0.3 (0-1.0) k/uL Eosinophils # 0.2 (0-0.7) k/uL Basophils # 0.0 (0-0.2) k/uL Sodium 138 (137-145) mmol/L Potassium 4.6 (3.5-5.1) mmol/L Chloride 107 (98-107) mmol/L Carbon Dioxide 24 (22-30) mmol/L Anion Gap 7 mmol/L BUN 10 (9-20) mg/dL Creatinine 0.77 (0.66-1.25) mg/dL Est GFR (CKD-EPI)AfAm >90 (>60 ml/min/1.73 sqM) Est GFR (CKD-EPI)NonAf >90 (>60 ml/min/1.73 sqM) Glucose 92 (74-99) mg/dL Calcium 9.3 (8.4-10.2) mg/dL Magnesium 1.9 (1.6-2.3) mg/dL Total Bilirubin 0.3 (0.2-1.3) mg/dL AST 42 (17-59) U/L ALT 39 (4-49) U/L Alkaline Phosphatase 80 (38-126) U/L Troponin I <0.012 (0.000-0.034) ng/mL NT-Pro-B Natriuret Pep pg/mL Total Protein 7.0 (6.3-8.2) g/dL Albumin 4.5 (3.5-5.0) g/dL Amylase 51 (30-110) U/L Lipase 35 (23-300) U/L 06/12/22 Range/Units 11:42 WBC (3.8-10.6) k/uL RBC (4.30-5.90) m/uL Hgb (13.0-17.5) gm/dL Hct (39.0-53.0) % MCV (80.0-100.0) fL MCH (25.0-35.0) pg MCHC (31.0-37.0) g/dL RDW (11.5-15.5) % Plt Count (150-450) k/uL MPV Neutrophils % % Lymphocytes % % Monocytes % % Eosinophils % % Basophils % % Neutrophils # (1.3-7.7) k/uL Lymphocytes # (1.0-4.8) k/uL Monocytes # (0-1.0) k/uL Eosinophils # (0-0.7) k/uL Basophils # (0-0.2) k/uL Sodium (137-145) mmol/L Potassium (3.5-5.1) mmol/L Chloride (98-107) mmol/L Carbon Dioxide (22-30) mmol/L Anion Gap mmol/L BUN (9-20) mg/dL Creatinine (0.66-1.25) mg/dL Est GFR (CKD-EPI)AfAm (>60 ml/min/1.73 sqM) Est GFR (CKD-EPI)NonAf (>60 ml/min/1.73 sqM) Glucose (74-99) mg/dL Calcium (8.4-10.2) mg/dL Magnesium (1.6-2.3) mg/dL Total Bilirubin (0.2-1.3) mg/dL AST (17-59) U/L ALT (4-49) U/L Alkaline Phosphatase (38-126) U/L Troponin I (0.000-0.034) ng/mL NT-Pro-B Natriuret Pep 44 pg/mL Total Protein (6.3-8.2) g/dL Albumin (3.5-5.0) g/dL Amylase (30-110) U/L Lipase (23-300) U/L - Radiology Data Radiology results: image reviewed (Chest x-ray shows no acute process) Disposition Clinical Impression: Chest pain Disposition: ADMITTED IP TO THIS HOSP Is patient prescribed a controlled substance at d/c from ED?: No Time of Disposition: 12:55
[2022-06-12] MEDS ORDERED: NITROGLYCERIN OINT 1 INCH/GM PACKET TOPICAL STA (11:13)
[2022-06-12] MEDS ORDERED: ASPIRIN 81 MG PO STA (11:13)
--- NOTE | 2022-06-12 12:08 | XR ---
EXAMINATION TYPE: XR chest 2V DATE OF EXAM: 06/12/2022 COMPARISON: NONE TECHNIQUE: PA and lateral views submitted. HISTORY: Chest pain FINDINGS: The lungs are clear and there is no pneumothorax, pleural effusion, or focal pneumonia. Heart size normal. No overt failure. IMPRESSION: 1. No acute process.
[2022-06-12 12:09] LABS: Basophils % (A) 1 %; Eosinophils # (A) 0.2 k/uL (0-0.7); Eosinophils % (A) 4 %; HGB 14.9 gm/dL (13.0-17.5); Lymphocytes # (A) 2.4 k/uL (1.0-4.8); Lymphocytes % (A) 43 %; MCH 31.5 pg (25.0-35.0); MCHC 33.1 g/dL (31.0-37.0); MCV 95.2 fL (80.0-100.0); Mean Platelet Volume 7.2; Monocytes # (A) 0.3 k/uL (0-1.0); Monocytes % (A) 5 %; Neutrophils # (A) 2.5 k/uL (1.3-7.7); Neutrophils % (A) 44 %; Platelet Count 241 k/uL (150-450); RBC 4.73 m/uL (4.30-5.90); RDW 13.4 % (11.5-15.5); WBC 5.6 k/uL (3.8-10.6)
[2022-06-12 12:28] LABS: ALT 39 U/L (4-49); AST 42 U/L (17-59); African American GFR (CKD) >90 (>60 ml/min/1.73 sqM); Albumin 4.5 g/dL (3.5-5.0); Alkaline Phosphatase 80 U/L (38-126); Amylase 51 U/L (30-110); Anion Gap 7 mmol/L; Blood Urea Nitrogen 10 mg/dL (9-20); Calcium 9.3 mg/dL (8.4-10.2); Carbon Dioxide 24 mmol/L (22-30); Chloride 107 mmol/L (98-107); Glucose 92 mg/dL (74-99); Lipase 35 U/L (23-300); Magnesium 1.9 mg/dL (1.6-2.3); Non-African American GFR(CKD) >90 (>60 ml/min/1.73 sqM); Potassium 4.6 mmol/L (3.5-5.1); Sodium 138 mmol/L (137-145); Total Bilirubin 0.3 mg/dL (0.2-1.3)
[2022-06-12] MEDS ORDERED: NITROGLYCERIN SL TABS 0.4 MG TAB SUBLINGUAL STA (12:32)
[2022-06-12] MEDS ORDERED: NITROGLYCERIN SL TABS 0.4 MG TAB SUBLINGUAL PRN (12:44)
[2022-06-12 13:01] LABS: INR 0.9 (<1.2); Partial Thromboplastin Time 26.7 sec (22.0-30.0); Prothrombin Time 10.2 sec (9.0-12.0)
[2022-06-12] MEDS ORDERED: QUEtiapine 50 MG TAB PO PRN (13:43)
--- NOTE | 2022-06-12 13:50 | P.CRDCN ---
History of Present Illness History of present illness: HISTORY OF PRESENTING ILLNESS This is a pleasant 36-year-old male past medical history significant for chronic nicotine dependence, asthma, hypertension, ADD/ADHD, family history of coronary artery disease. We have been asked to see in consultation for chest pain. Patient is seen and examined in the emergency department. Presents to the emergency department with complaints of intermittent chest discomfort. On Friday, patient states he had an episode where he was sitting and suddenly lost consciousness and passed out. He states he was out for about 10 minutes and it resolved. He states he went to a clinic and was evaluated and recommended patient come to the ER for further evaluation. In terms of his chest pain, he gets midsternal chest tightness/pressure, intermittently regardless of activity. It is non-radiating. He sometimes has it when he gets shortness of breath with activity and sometimes he will be resting and have discomfort. He denies any palpitations, nausea, vomiting, diaphoresis, abdominal pain, fever, cough, chills. He denies any history of CAD, ID, Stroke, diabetes. Currently smokes 1PPD. Family history includes brother of a ID at age 32, father with pos sible heart failure. DIAGNOSTICS EKG reveals sinus rhythm, heart rate 79, occasional PVC, no acute ST-T wave abnormalities suggestive acute ischemia. prior EKG in 2016 similar findings Telemetry tracings at bedside in ER indicate sinus rhythm Chest xray no acute heart failure or cardiopulmonary process noted Laboratory reviewed, troponin negative x1 , d-dimer negative, CBC unremarkable, sodium 138, potassium 4.6, BUN 10, serum creatinine 0.7, magnesium 1.9, proBNP 44 Current home medications include lisinopril 5 mg nightly, Lamictal, Effexor, Seroquel, Adderall REVIEW OF SYSTEMS At the time of my exam: CONSTITUTIONAL: Denies fever or chills. CARDIOVASCULAR: + chest pain,+ shortness of breath, Denies orthopnea, PND or palpitations. RESPIRATORY: Denies cough. GASTROINTESTINAL: Denies abdominal pain, diarrhea, constipation, nausea or vomiting. MUSCULOSKELETAL: Denies myalgias. NEUROLOGIC: Denies numbness, tingling, headache or weakness. ENDOCRINE: Denies fatigue, weight change, polydipsia or polyurina. GENITOURINARY: Denies burning, hematuria or urgency with micturation. HEMATOLOGIC: Denies history of anemia or bleeding. PHYSICAL EXAMINATION Blood pressure 135/86, heart rate 75, afebrile, oxygen saturations 97% on room air CONSTITUTIONAL: No apparent distress. HEENT: Head is normocephalic. Pupils are equal, round. Sclerae anicteric. Mucous membranes of the mouth are moist. No JVD. No carotid bruit. CHEST EXAMINATION: Lungs are clear to auscultation. No chest wall tenderness is noted on palpation or with deep breathing. HEART EXAMINATION: Regular rate and rhythm. S1, S2 heard. No murmurs, gallops or rub. ABDOMEN: Soft, nontender. Positive bowel sounds. EXTREMITIES: 2+ peripheral pulses, no lower extremity edema and no calf tenderness. SKIN: warm, dry NEUROLOGIC EXAMINATION: Patient is awake, alert and oriented x3. ASSESSMENT Chest pain, atypical Syncopal episode, unclear etiology Chronic nicotine dependence History of hypertension History of asthma Family history of coronary artery disease PLAN An acute coronary event has been ruled out with no EKG evidence of ischemia and negative cardiac enzymes. Obtain 2D echocardiogram and doppler study to assess cardiac structure and function. Trend troponin Repeat EKG If cardiac enzymes are negative and no significant changes on EKG, plan for Stress Echo test tomorrow morning to assess for stress induced cardiac ischemia NPO after midnight Lipid panel Smoking cessation discussed and highly recommended. further recommendations based on clinical course Thank you kindly for this consultation. Nurse practitioner note has been reviewed by physician. Signing provider agrees with the documented findings, assessment, and plan of care. 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, "inflammation lt side lower intestine" History of Any Multi-Drug Resistant Organisms: None Reported Past Surgical History: Hernia Repair Additional Past Surgical History / Comment(s): L inguinal hernia repair Past Anesthesia/Blood Transfusion Reactions: Previous Problems w/ Anesthesia Additional Past Anesthesia/Blood Transfusion Reaction / Comment(s): takes longer to wake up Past Psychological History: ADD/ADHD, Anxiety, Bipolar, Depression Smoking Status: Current every day smoker Past Alcohol Use History: None Reported Past Drug Use History: None Reported - Past Family History Father Family Medical History: Deep Vein Thrombosis (DVT) Additional Family Medical History / Comment(s): Cardiomegaly, possible lymph node problems. Mother Family Medical History: Asthma Additional Family Medical History / Comment(s): Generalized anxiety. Medications and Allergies Home Medications Medication Instructions Recorded Confirmed Type lisinopriL [Zestril] 5 mg PO HS 01/22/16 06/12/22 History Dextroamphetamine/Amphetamine 30 mg PO BID@0700,1400 06/12/22 06/12/22 History [Adderall] QUEtiapine [SEROquel] 50 - 100 mg PO HS PRN 06/12/22 06/12/22 History Venlafaxine HCl [Effexor XR] 150 mg PO HS 06/12/22 06/12/22 History lamoTRIgine [LaMICtal] 150 mg PO BID 06/12/22 06/12/22 History Allergies Allergy/AdvReac Type Severity Reaction Status Date / Time No Known Allergies Allergy Verified 06/12/22 13:18 Physical Exam Vitals: Vital Signs Temp Pulse Pulse Resp BP Pulse Ox 06/12/22 12:37 75 18 135/86 97 06/12/22 11:54 75 06/12/22 10:55 98.9 F 82 18 138/96 98 Intake and Output 06/11/22 06/12/22 06/12/22 22:59 06:59 14:59 Other: Weight 127.006 kg Results 06/12/22 11:42 06/12/22 11:42 Cardiac Enzymes 06/12/22 06/12/22 Range/Units 11:42 11:42 AST 42 (17-59) U/L Troponin I <0.012 (0.000-0.034) ng/mL Coagulation 06/12/22 Range/Units 11:42 PT 10.2 (9.0-12.0) sec APTT 26.7 (22.0-30.0) sec CBC 06/12/22 Range/Units 11:42 WBC 5.6 (3.8-10.6) k/uL RBC 4.73 (4.30-5.90) m/uL Hgb 14.9 (13.0-17.5) gm/dL Hct 45.0 (39.0-53.0) % Plt Count 241 (150-450) k/uL Comprehensive Metabolic Panel 06/12/22 Range/Units 11:42 Sodium 138 (137-145) mmol/L Potassium 4.6 (3.5-5.1) mmol/L Chloride 107 (98-107) mmol/L Carbon Dioxide 24 (22-30) mmol/L BUN 10 (9-20) mg/dL Creatinine 0.77 (0.66-1.25) mg/dL Glucose 92 (74-99) mg/dL Calcium 9.3 (8.4-10.2) mg/dL AST 42 (17-59) U/L ALT 39 (4-49) U/L Alkaline Phosphatase 80 (38-126) U/L Total Protein 7.0 (6.3-8.2) g/dL Albumin 4.5 (3.5-5.0) g/dL Current Medications Generic Name Dose Route Start Last Admin Trade Name Freq PRN Reason Stop Dose Admin Aspirin 81 mg 06/13/22 09:00 Aspirin 81 Mg PO DAILY SIVA Lisinopril 5 mg 06/12/22 21:00 Lisinopril 5 Mg Tab PO HS SIVA Nitroglycerin 0.4 mg 06/12/22 12:44 Nitroglycerin Sl Tabs 0.4 Mg Tab SUBLINGUAL Q5M PRN Chest Pain Nitroglycerin 1 inch 06/12/22 18:00 Nitroglycerin Oint 1 Inch/Gm Packet TOPICAL Q6HR SIVA Intake and Output 06/11/22 06/12/22 06/12/22 22:59 06:59 14:59 Other: Weight 127.006 kg Patient Weight 06/13/22 06:59 Weight 127.006 kg 06/12/22 11:42 06/12/22 11:42
--- NOTE | 2022-06-12 14:22 | P.HPIM ---
History of Present Illness H&P Date: 06/12/22 Chief Complaint: Chest pain History of present illness: This is a pleasant 36-year-old male past medical history significant for bipolar disorder, chronic nicotine dependence, asthma, hypertension, ADD/ADHD, family history of early coronary artery disease. The patient has been complaining of on and off chest pain for the past 1 week and half. Patient is seen and examined in the emergency department. Presents to the emergency department with comp laints of intermittent chest discomfort. On Friday, patient states he had an episode where he was sitting and suddenly lost consciousness and passed out. He states he was not sure if he completely passed out since he told me that he was hearing another person trying to wake him up. He states he went to see his primary care physician. Patient was evaluated and recommended patient come to the ER for further evaluation. In terms of his chest pain, he gets midsternal chest tightness/pressure, intermittently regardless of activity. It is non- radiating. He sometimes has it when he gets shortness of breath with activity and sometimes he will be resting and have discomfort. He denies any palpitatio ns, nausea, vomiting, diaphoresis, abdominal pain, fever, cough, chills. He denies any history of CAD, IA, Stroke, diabetes. Currently smokes 1PPD. Family history includes brother of a IA at age 32, father with possible heart failure. Review of systems: All 14 review of systems evaluated and all negative except for above. PHYSICAL EXAMINATION Blood pressure 135/86, heart rate 75, afebrile, oxygen saturations 97% on room air CONSTITUTIONAL: No apparent distress. HEENT: Head is normocephalic. Pupils are equal, round. Sclerae anicteric. Mucous membranes of the mouth are moist. No JVD. No carotid bruit. CHEST EXAMINATION: Lungs are clear to auscultation. No chest wall tenderness is noted on palpation or with deep breathing. HEART EXAMINATION: Regular rate and rhythm. S1, S2 heard. No murmurs, gallops or rub. ABDOMEN: Soft, nontender. Positive bowel sounds. EXTREMITIES: 2+ peripheral pulses, no lower extremity edema and no calf tenderness. SKIN: warm, dry NEUROLOGIC EXAMINATION: Patient is awake, alert and oriented x3. Assessment and plan: #Chest pain -Atypical in nature -Negative d-dimer is -Admit to rule out acute coronary syndrome -Cardiology consulted -2-D echo ordered -Check lipid panel, A1c and TSH #Syncope versus near-syncope -Check orthostatics every shift -CT head ordered #Bipolar disorder #Hypertension difficult hyperactivity disorder -Resume all medications #Nicotine addiction -Patient was counseled regarding smoking cessation -Nicotine patch ordered 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, "inflammation lt side lower intestine" History of Any Multi-Drug Resistant Organisms: None Reported Past Surgical History: Hernia Repair Additional Past Surgical History / Comment(s): L inguinal hernia repair Past Anesthesia/Blood Transfusion Reactions: Previous Problems w/ Anesthesia Additional Past Anesthesia/Blood Transfusion Reaction / Comment(s): takes longer to wake up Past Psychological History: ADD/ADHD, Anxiety, Bipolar, Depression Smoking Status: Current every day smoker Past Alcohol Use History: None Reported Past Drug Use History: None Reported - Past Family History Father Family Medical History: Deep Vein Thrombosis (DVT) Additional Family Medical History / Comment(s): Cardiomegaly, possible lymph node problems. Mother Family Medical History: Asthma Additional Family Medical History / Comment(s): Generalized anxiety. Medications and Allergies Home Medications Medication Instructions Recorded Confirmed Type lisinopriL [Zestril] 5 mg PO HS 01/22/16 06/12/22 History Dextroamphetamine/Amphetamine 30 mg PO BID@0700,1400 06/12/22 06/12/22 History [Adderall] QUEtiapine [SEROquel] 50 - 100 mg PO HS PRN 06/12/22 06/12/22 History Venlafaxine HCl [Effexor XR] 150 mg PO HS 06/12/22 06/12/22 History lamoTRIgine [LaMICtal] 150 mg PO BID 06/12/22 06/12/22 History Allergies Allergy/AdvReac Type Severity Reaction Status Date / Time No Known Allergies Allergy Verified 06/12/22 13:18 Physical Exam Vitals: Vital Signs Temp Pulse Pulse Resp BP Pulse Ox 06/12/22 12:37 75 18 135/86 97 06/12/22 11:54 75 06/12/22 10:55 98.9 F 82 18 138/96 98 Intake and Output 06/11/22 06/12/22 06/12/22 22:59 06:59 14:59 Other: Weight 127.006 kg Results CBC & Chem 7: 06/12/22 11:42 06/12/22 11:42
--- NOTE | 2022-06-12 14:40 | CT ---
EXAMINATION TYPE: CT brain wo con DATE OF EXAM: 06/12/2022 COMPARISON: 03/05/2013 HISTORY: Syncope, c/o headaches CT DLP: 1129.[address] of the brain was performed. The ventricles, basal cisterns and sulci overlying the cerebral convexities demonstrate a normal appe arance. There is no evidence for intracranial hemorrhage or sulcal effacement. No mass effects are seen. Osseous calvarium is intact. If symptoms persist consider MRI as clinically warranted. IMPRESSION: 1. No acute intracranial process is seen at this time.
[2022-06-12 15:04] LABS: C Reactive Protein <0.5 mg/dL (<1.0)
[2022-06-12] MEDS: NON FORMULARY DRUG (Dextroamphetamine/Amphetamine [Adderall] 30 MG Tablet) PO SCH (17:46)
[2022-06-12] MEDS ORDERED: ACETAMINOPHEN TAB 325 MG TAB PO PRN (17:47)
[2022-06-12] MEDS: NITROGLYCERIN OINT 1 INCH/GM PACKET TOPICAL SCH ×2 (18:23→21:04)
[2022-06-12] MEDS: NICOTINE 14MG/24HR PATCH TRANSDERM SCH (18:23)
[2022-06-12] MEDS ORDERED: ONDANSETRON 4 MG/2 ML VIAL IVP PRN (18:31)
[2022-06-12] MEDS ORDERED: VENLAFAXINE HCL ER 150 MG CAP PO SCH (21:00)
[2022-06-12] MEDS ORDERED: lisinopriL 5 MG TAB PO SCH (21:00)
[2022-06-12] MEDS: lamoTRIgine 100 MG TAB PO SCH (21:04)
[2022-06-13 02:09] LABS: Chol/HDL Ratio 7.54 Ratio; LDL Cholesterol,Calculated 104.2 mg/dL (0.0-131.0)
[2022-06-13 08:11] VITALS: TEMP 97.9
[2022-06-13] MEDS: NICOTINE 14MG/24HR PATCH TRANSDERM SCH (08:26)
[2022-06-13] MEDS: NON FORMULARY DRUG (Dextroamphetamine/Amphetamine [Adderall] 30 MG Tablet) PO SCH ×2 (08:26→14:21)
[2022-06-13] MEDS: lamoTRIgine 100 MG TAB PO SCH (08:26)
[2022-06-13 08:46] VITALS: BP 118/65; RESP 16
[2022-06-13] MEDS ORDERED: ASPIRIN 325 MG TAB PO SCH (09:00)
[2022-06-13] MEDS ORDERED: ASPIRIN 81 MG PO SCH (09:00)
[2022-06-13 09:04] LABS: LDL Cholesterol,Calculated 73.6 mg/dL (0.0-131.0)
[2022-06-13] MEDS: NITROGLYCERIN OINT 1 INCH/GM PACKET TOPICAL SCH (09:36)
--- NOTE | 2022-06-13 10:16 | P.PN ---
Subjective This is a pleasant 36-year-old male past medical history significant for chronic nicotine dependence, asthma, hypertension, ADD/ADHD, family history of coronary artery disease. We have been asked to see in consultation for chest pain. Patient is seen and examined in the emergency department. Presents to the emergency department with complaints of intermittent chest discomfort. On Friday, patient states he had an episode where he was sitting and suddenly lost consciousness and passed out. He states he was out for about 10 minutes and it resolved. He states he went to a clinic and was evaluated and recommended patient come to the ER for further evaluation. In terms of his chest pain, he gets midsternal chest tightness/pressure, intermittently regardless of activity. It is non-radiating. He sometimes has it when he gets shortness of breath with activity and sometimes he will be resting and have discomfort. He denies any palpitations, nausea, vomiting, diaphoresis, abdominal pain, fever, cough, chills. He denies any history of CAD, IA, Stroke, diabetes. Currently smokes 1PPD. Family history includes brother of a IA at age 32, father with possible heart failure. 06/13/2022 Patient seen and examined at bedside, no acute distress. No significant chest pain or shortness of breath. No further episodes of lightheadedness or syncope. Vital signs are stable. Telemetry reviewed, patient sinus mechanism with occasional PVCs. Brain CT was performed yesterday with no acute intracranial abnormality reported. Patient currently maintained on aspirin 81 mg daily, lisinopril 5 mg nightly PHYSICAL EXAMINATION Vitals reviewed CONSTITUTIONAL: No apparent distress. HEENT: Neck Supple No JVD. CHEST EXAMINATION: Lungs are clear to auscultation. No chest wall tenderness is noted on palpation or with deep breathing. HEART EXAMINATION: Regular rate and rhythm. S1, S2 heard. No murmurs, gallops or rub. ABDOMEN: Soft, nontender. Positive bowel sounds. EXTREMITIES: 2+ peripheral pulses, no lower extremity edema and no calf tende rness. SKIN: warm, dry NEUROLOGIC EXAMINATION: Patient is awake, alert and oriented x3. ASSESSMENT Chest pain, atypical, acute coronary syndrome has ruled out Syncopal episode, unclear etiology Chronic nicotine dependence History of hypertension History of asthma Family history of coronary artery disease PLAN An acute coronary event has been ruled out with no EKG evidence of ischemia and negative cardiac enzymes. Obtain 2D echocardiogram and doppler study to assess cardiac structure and fun ction. Plan for Stress Echo test this morning to assess for stress induced cardiac ischemia Smoking cessation discussed and highly recommended. From cardiology perspective, if stress test is negative no further inpatient workup from a cardiology perspective Nurse practitioner note has been reviewed by physician. Signing provider agrees with the documented findings, assessment, and plan of care. Objective - Vital Signs Vital signs: Vital Signs Temp 97.9 F 06/13/22 07:00 Pulse 80 06/13/22 08:31 Resp 16 06/13/22 08:31 BP 118/65 06/13/22 08:31 Pulse Ox 97 06/13/22 07:00 FiO2 Intake & Output 06/12/22 06/13/22 06/13/22 18:59 06:59 18:59 Weight 127.006 kg Other: Voiding Method Toilet Toilet # Voids 1 1 - Labs CBC & Chem 7: 06/12/22 11:42 06/12/22 11:42 Labs: Abnormal Lab Results - Last 24 Hours (Table) 06/12/22 06/13/22 Range/Units 14:35 04:12 Triglycerides 238.00 H 295.00 H (0.00-149.00) mg/dL VLDL Cholesterol, Calc 47.60 H 59.00 H (5.00-40.00) mg/dL HDL Cholesterol 23.20 L 21.40 L (40.00-60.00) mg/dL
--- NOTE | 2022-06-13 11:27 | CA ---
Transthoracic Echo Report Name: Juan David Noe Age: 36 Gender: M : 1985 Exam Date: 06/13/2022 07:29 Exam Location: [facility] Ht (in): 71 Wt (lb): 208 Ordering Physician: Buddy Morse DO Attending/Referring Phys: Computer Hardware Developer Taina Felder RDCS Procedure CPT: Indications: Chest Pain Cardiac Hx: Technical Quality: Good Contrast 1: Total Dose (mL): Contrast 2: Total Dose (mL): MEASUREMENTS (Male / Female) Normal Values 2D ECHO LV Diastolic Diameter PLAX 4.7 cm 4.2 - 5.9 / 3.9 - 5.3 cm LV Systolic Diameter PLAX 3.3 cm IVS Diastolic Thickness 1.0 cm 0.6 - 1.0 / 0.6 - 0.9 cm LVPW Diastolic Thickness 1.0 cm 0.6 - 1.0 / 0.6 - 0.9 cm LV Relative Wall Thickness 0.4 RV Internal Dim ED PLAX 3.4 cm LA Systolic Diameter LX 3.3 cm 3.0 - 4.0 / 2.7 - 3.8 cm LA Volume 44.4 cm??? 18 - 58 / 22 - 52 cm??? M-MODE Aortic Root Diameter MM 3.5 cm MV E Point Septal Separation 0.2 cm AV Cusp Separation MM 2.4 cm DOPPLER AV Peak Velocity 122.6 cm/s AV Peak Gradient 6.0 mmHg MV Area PHT 3.3 cm??? Mitral E Point Velocity 87.6 cm/s Mitral A Point Velocity 66.6 cm/s Mitral E to A Ratio 1.3 MV Deceleration Time 229.6 ms MV E' Velocity 8.6 cm/s Mitral E to MV E' Ratio 10.2 TR Peak Velocity 228.5 cm/s TR Peak Gradient 20.9 mmHg Right Ventricular Systolic Press 25.9 mmHg FINDINGS Left Ventricle Left ventricular ejection fraction is estimated at 60-65 %. Left ventricular cavity size normal. Left ventricular wall thickness normal. Right Ventricle Mild right ventricular dilatation. Right ventricular systolic pressure within normal limits. Right Atrium Normal right atrial size. Left Atrium Normal left atrial size. No evidence for an atrial septal defect. Mitral Valve Trace mitral regurgitation. Structurally normal mitral valve. Aortic Valve Trileaflet aortic valve. No aortic valve stenosis or regurgitation. Tricuspid Valve Trace to mild tricuspid regurgitation.structurally normal tricuspid valve. Pulmonic Valve Structurally normal pulmonic valve. No pulmonic regurgitation. Pericardium Normal pericardium. No pericardial effusion. Aorta Normal size aortic root and proximal ascending aorta. CONCLUSIONS 1. Normal left ventricle size and systolic function 2. Trace mitral and tricuspid regurgitation 3. No pericardial effusion Previewed by: Dr. Ean Dominguez MD (Electronically Signed) Final Date: 13 June 2022 11:26
--- NOTE | 2022-06-13 11:56 | CA ---
Stress Echo Report Juan David Noe Age: 36 Gender: M : 1985 Exam Date: 06/13/2022 10:25 Exam Location: [facility] Ht (in): 71 Wt (lb): 280 Ordering Physician: Cher Tamez Referring Physician: CHULA,, Optometrist Owner: Taina Felder RDCS Technologist Procedure CPT: Indication: Chest Pain ICD-9 Codes: Rhythm: Patient History: Atypical angina, Hyperlipidemia, Diabetes mellitus, Hypertension, Family history, Smoker, COPD Cardiac Medications: Medications in past 24 hours: Contrast: Stress Results Protocol: Wily Total dose(mL): Exercise Duration (min:sec): Max ST Depression (mm): Angina Score: Amado Score: METS: 12.1 Resting HR: 93 Resting BP: 135 / 93 Peak HR: 163 Peak BP: 165 / 101 Max Predicted HR: 183 89 % Max Predicted HR Target HR: 156 Double Product: [id number] Stress Summary: The patient's target heart rate was achieved The hemodynamic response to exercise was normal BP Response: Normal Reason for Termination: Cardiac Symptoms: ECG Analysis Resting ECG: Normal sinus rhythm, normal ECG Stress ECG: No abnormal ST/T wave changes with exercise Arrhythmia: Occasional PVCs Echo Analysis Resting Echo: Normal global and regional wall motion at rest with a left ventricular ejection fraction of 55 %. Peak Echo Analysis: Normal wall motion at peak exercise with no hypokinesis or dyskinesis MEASUREMENTS (Male/Female) Normal Values CONCLUSIONS 1. Good exercise tolerance 2. Normal stress echocardiogram with no evidence of stress induced ischemia Dr. Ean Dominguez MD (Electronically Signed) Final Date: 13 June 2022 11:55
[2022-06-13 14:28] VITALS: PULSE 76
--- NOTE | 2022-06-13 15:22 | P.DS ---
Providers Date of admission: 06/12/22 12:45 Expected date of discharge: 06/13/22 Attending physician: Cherry Brooks DO Consults: 06/12/22 12:44 Consult Physician Urgent Consulting Provider: Lynsey Anaya Consult Reason/Comments: cp Do you want consulting provider notified?: Yes [facility] [place] Hospital Course: Discharge Diagnosis: Chest pain, acute coronary event ruled out Presyncopal episode Hypertriglyceridemia ADHD Bipolar disorder Hypertension Nicotine dependence, recommend smoking cessation Hospital Course: Patient is a very pleasant 36-year-old male with a past medical history of ADHD, bipolar disorder and hypertension. He presented to the emergency department with a chief complaint of chest pain and near syncopal episode. He underwent full evaluation in the emergency department. An EKG was completed revealing normal sinus rhythm at 79 bpm with occasional PVCs. CT head was negative for acute intercranial process. CBC, coags, d-dimer, and CMP were all unremarkable. Troponin negative at less than 0.012. Patient was admitted under the services with consultation to cardiology. Patient was monitored overnight and troponins were trended all negative at less than 0.0123 draws. Lipid profile revealed elevated triglycerides 295, VLDL of 59, and HDL 21.4. Vitamin B12 normal at 342.0. TSH also normal at 1.2-0. Hemoglobin A1c 5.9%.Echocardiogram was completed showing normal EF 60-65% with no reported valvular or structural abnormalities. Orthostatic vitals monitored and negative for orthostatic hypotension or posterior orthostatic tachycardia. Stress echo negative showing good exercise tolerance and normal stress echocardiogram with no evidence of stress-induced ischemia and a Normal EF of 55%. Patient is medically stable at this time. Patient had no further episodes of chest pain and/or presyncopal episodes. Patient medically clear at this time. Cardiology recommending outpatient follow-up in their office in 2 weeks. Patient started on atorvastatin secondary to elevated lipid profile. Patient educated on importance of heart healthy and carb consistent diet as he is also prediabetic with hemoglobin A1c of 5.9%. Physical examination: Patient seen and examined at bedside. Vital signs reviewed and stable. General: Nontoxic, no distress and appears stated age. Derm: Skin warm and dry, normal coloration for ethnicity. Head: Atraumatic, normocephalic and symmetric. Eyes: EOMs intact, no lid lag, and anicteric sclera Mouth: no lip lesions, mucus membranes moist Cardiovascular: regular rate and rhythm with normal S1S2, no murmur, positive posterior tibial pulses bilaterally, and cap refill < 2 seconds. Lungs: Respirations even, regular, and unlabored on room air. Lungs CTA bilaterally, no rhonchi, no rales, no wheezing, and no accessory muscle usage. Abdominal: soft, nontender to palpation, no guarding, no appreciable organomegaly Ext: ROM intact. No gross muscle atrophy, no edema, no contractures Neuro: Speech clear, face symmetrical and CN II-XII grossly intact with no noted focal neuro deficits Psych: Alert and oriented to person, place, time, and situation. Appropriate and pleasant affect. A total of 37 minutes of time were spent preparing this complex discharge summary. Pt was discharged on 06/13/22 at 3:14 PM Patient Condition at Discharge: Stable Plan - Discharge Summary Discharge Rx Participant: No New Discharge Prescriptions: New Atorvastatin [Lipitor] 40 mg PO DAILY 30 Days #30 tablet Continue lisinopriL [Zestril] 5 mg PO HS lamoTRIgine [LaMICtal] 150 mg PO BID QUEtiapine [SEROquel] 50 - 100 mg PO HS PRN PRN Reason: Insomnia Venlafaxine HCl [Effexor XR] 150 mg PO HS Dextroamphetamine/Amphetamine [Adderall] 30 mg PO BID@0700,1400 Discharge Medication List lisinopriL [Zestril] 5 mg PO HS 01/22/16 [History] Dextroamphetamine/Amphetamine [Adderall] 30 mg PO BID@0700,1400 06/12/22 [History] QUEtiapine [SEROquel] 50 - 100 mg PO HS PRN 06/12/22 [History] Venlafaxine HCl [Effexor XR] 150 mg PO HS 06/12/22 [History] lamoTRIgine [LaMICtal] 150 mg PO BID 06/12/22 [History] Atorvastatin [Lipitor] 40 mg PO DAILY 30 Days #30 tablet 06/13/22 [Rx] Follow up Appointment(s)/Referral(s): Ean Dominguez MD [STAFF PHYSICIAN] - 1 Week Denise Craft MD [Primary Care Provider] - 1-2 days Patient Instructions/Handouts: How to Stop Smoking (GEN), Heart Healthy Diet (GEN), Cigarette Smoking and Your Health (GEN) Activity/Diet/Wound Care/Special Instructions: Activity: As tolerated. Take breaks as needed. Diet: Heart healthy and carb consistent diet. Avoid salts, or foods with hidden salts such as canned or boxed foods and frozen dinners. Extra salt makes your heart work harder and traps the fluid in your body for longer. Special Instructions: Take all of your medications as directed and remember to keep all of your doctor's appointments and follow-up as needed. Thank you for allowing us to participate in your care, it was truly a pleasure having you for our patient!!! Discharge Disposition: HOME SELF-CARE
== END 2022-06-13 15:58 | disposition home or self-care (01) ==
LOC: EC 10:46 → 6NMEDSUR 12:45
PROVIDERS: ADMIT Internal Medicine; ATTEND Internal Medicine
DX: R07.89 Other chest pain (principal); R55 Syncope and collapse; R11.0 Nausea; R61 Generalized hyperhidrosis; R06.00 Dyspnea, unspecified; F17.210 Nicotine dependence, cigarettes, uncomplicated; I10 Essential (primary) hypertension; E78.1 Pure hyperglyceridemia; E78.5 Hyperlipidemia, unspecified; F90.9 Attention-deficit hyperactivity disorder, unspecified type; F31.9 Bipolar disorder, unspecified; I49.3 Ventricular premature depolarization; K21.9 Gastro-esophageal reflux disease without esophagitis; H91.90 Unspecified hearing loss, unspecified ear; K90.0 Celiac disease; J45.990 Exercise induced bronchospasm; F41.9 Anxiety disorder, unspecified; R73.03 Prediabetes; Z71.3 Dietary counseling and surveillance; Z71.6 Tobacco abuse counseling; Z79.899 Other long term (current) drug therapy; Z83.6 Family history of other diseases of the respiratory system; Z82.49 Family history of ischemic heart disease and other diseases of the circulatory system; Z81.2 Family history of tobacco abuse and dependence; Z82.5 Family history of asthma and other chronic lower respiratory diseases; Z81.8 Family history of other mental and behavioral disorders
CPT/HCPCS: 99285; 36415; 93005; 93306; 93351; 85379; 83880; 80061 ×2; 80053; 84443; 82607; 82150; 83690; 83735; 84484; 85025; 85610; 85730; 86140; 83036; 71046; 70450; G0378 ×2; S4990

== ENCOUNTER → 2024-01-26 | Outpatient (CLI) | payer BC, OTHER ==
[2024-01-27 02:39] LABS: Basophils # (A) 0.03 X 10*3/uL (0.00-0.10); Basophils % (A) 0.5 %; Eosinophils % (A) 3.2 %; HCT 41.9 % (39.6-50.0); HGB 14.2 g/dL (13.0-17.0); Lymphocytes # (A) 2.39 X 10*3/uL (0.90-5.00); MCH 31.3 pg (27.0-32.0); MCHC 33.9 g/dL (32.0-37.0); MCV 92.3 FL (80.0-97.0); Mean Platelet Volume 9.8 FL (9.5-12.2); Monocytes # (A) 0.43 X 10*3/uL (0.20-1.00); Monocytes % (A) 6.8 %; NRBC Per 100 WBC 0 X 10*3/uL (0.00-0.01); Neutrophils # (A) 3.23 X 10*3/uL (1.80-7.70); Neutrophils % (A) 51.3 %; Platelet Count 220 X 10*3/uL (140-440); RBC 4.54 X 10*6/uL (4.40-5.60); RDW 13.4 % (11.5-14.5); WBC 6.29 X 10*3/uL (4.50-10.00)
[2024-01-27 03:14] LABS: ALT 52 U/L (10-49); AST 45 U/L (14-35); Albumin 4.8 g/dL (3.8-4.9); Albumin/Globulin Ratio 1.92 Ratio (1.60-3.17); Alkaline Phosphatase 106 U/L (41-126); Blood Urea Nitrogen 6.6 mg/dL (9.0-27.0); Calcium 9.9 mg/dL (8.7-10.3); Chloride 103 mmol/L (96-109); Globulin 2.5 g/dL (1.6-3.3); Glucose 84 mg/dL (70-110); Potassium 4.3 mmol/L (3.5-5.5); Sodium 139 mmol/L (135-145); Total Bilirubin 0.3 mg/dL (0.3-1.2); Total Protein 7.3 g/dL (6.2-8.2)
[2024-01-27 04:15] LABS: Prealbumin 33.4 mg/dL (18.0-42.0)
== END | disposition home or self-care (01) ==
LOC: LABWHC1 16:10
PROVIDERS: ATTEND Internal Medicine Infectious Disease
DX: K90.0 Celiac disease (principal); L30.9 Dermatitis, unspecified
CPT/HCPCS: 36415; 80053; 83036; 84134; 85025; 86140; 86255

== ENCOUNTER 2024-05-26 10:46 | Day surgery (SDC) | payer BC, OTHER ==
[2024-05-24 12:12] VITALS: BMI 28.8
[~2024-05-26 10:46] MED LIST changes: -LACTATED RINGERS 1,000 ML IV SCH; +LIDOCAINE 1% (10MG/ML) FOR IV START INTRADERMA PRN; -LIDOCAINE 1% 20 ML VIAL (10MG/ML) FOR IV START INTRADERMA PRN
[2024-05-26 11:34] VITALS: TEMP 97.5
[2024-05-26] MEDS: LACTATED RINGERS 1,000 ML IV SCH (11:38)
[2024-05-26] MEDS: IV FLUID CONTINUATION 1,000 ML IV ONE (11:38)
[2024-05-26] MEDS ORDERED: PROPOFOL 10 MG/ML 20 ML VIAL IV ONE (12:23)
--- NOTE | 2024-05-26 12:33 | P.PCN ---
Date of Procedure: 05/26/24 Procedure(s) Performed: BRIEF HISTORY: Patient is a 38-year-old, pleasant, white female scheduled for an upper endoscopy as a part evaluation of longstanding history of celiac disease diagnosed 16 years ago. Patient has been on a strict gluten-free diet. He developed skin rash in the lower extremities and is following with a importer exporter recommended an upper endoscopy to reassess celiac disease.. PROCEDURE PERFORMED: Esophagogastroduodenoscopy with multiple biopsies. PREOPERATIVE DIAGNOSIS: History of celiac disease. IV sedation per anesthesia. PROCEDURE: After informed consent was obtained, the patient was brought into the endoscopy unit. IV sedation was administered by Anesthesia under continuous monitoring. Initially the Olympus GIF-140 video endoscope was inserted into the mouth. Esophagus intubated without any difficulty. It was gradually advanced into the stomach and duodenum and carefully examined. The bulb of the duodenum appeared normal. Second part of the duodenum there were decreased duodenal folds identified but no mucosal atrophy seen. Multiple biopsies were done from the second part of the duodenum to assess for celiac disease. The scope at this time was withdrawn to the stomach, adequately insufflated with air, and upon careful examination, mucosa of the antrum, body, cardia and the fundus appeared normal. The scope was then withdrawn into the esophagus. Small hiatal hernia noted the GE junction was located at 39 cm from the incisors. The esophagus appeared normal. There were no erosions or ulcerations seen and the patient tolerated the procedure well. IMPRESSION: 1. Mildly decreased duodenal folds s/p multiple biopsies to assess for celiac disease. 2. Small hiatal hernia. RECOMMENDATIONS: The findings of this examination were discussed with the patient as well as his family. He was advised to follow-up the biopsy results. Continue with a strict gluten-free diet. Follow-up in the office in 2 weeks..
[2024-05-26 13:15] VITALS: BP 134/68; RESP 18
[2024-05-26 13:48] VITALS: PULSE 77
== END 2024-05-26 13:45 | disposition home or self-care (01) ==
LOC: ORWHC2ENDO 10:46
PROVIDERS: ATTEND Internal Medicine Gastroenterology
DX: K29.80 Duodenitis without bleeding (principal); K44.9 Diaphragmatic hernia without obstruction or gangrene; K90.0 Celiac disease; I10 Essential (primary) hypertension; E78.5 Hyperlipidemia, unspecified; J45.909 Unspecified asthma, uncomplicated; F90.9 Attention-deficit hyperactivity disorder, unspecified type; F41.9 Anxiety disorder, unspecified; K21.9 Gastro-esophageal reflux disease without esophagitis; Z79.51 Long term (current) use of inhaled steroids; Z79.899 Other long term (current) drug therapy; Z98.890 Other specified postprocedural states
CPT/HCPCS: 88305; 43239; J2704